=== PATIENT | female | born 1965 | race Caucasian/White ===

== ENCOUNTER 2016-07-05 16:12 | Emergency (ER) | payer BC, OTHER ==
[~2016-07-05] VITALS: Ht 165.1 cm; Wt 68.4 kg
[~2016-07-05 16:12] MED LIST: CITA10TA7 PO; HYDR-4246 PO; LISI1TAB13 PO; TRAZODONE PO
[2016-07-05 16:13] VITALS: Ht 165.1 cm; Wt 68.4 kg
--- OUTSIDE RECORDS SUMMARY | 2016-07-05 16:16 | XMS REPORT ---
Author Author Dahlia Cole Organization [employer] Address Unknown Phone Unavailable Care Team Providers Care Lining Feller Blindstitch Name Role Phone Dahlia Cole CP Unavailable Allergies No Known Allergies Problems No Known Problems Medications Medication Code System Code Instructions Start Date End Date Status Dosage Acyclovir [facility] [address]-70 200 MG Orally BID Dec 29, 2015 1 capsule Results No Known Results Summary Purpose [employer] Submission
--- OUTSIDE RECORDS SUMMARY | 2016-07-05 16:17 | XMS REPORT | Referral Summary ---
Author Author [facility] Organization [facility] Address Unknown Phone Unavailable Care Team Providers Care Cvicu Nurse Name Role Phone Kaleb Theodore Primary Care Physician [phone] Encounter [facility] Date(s): 08/18/15 - 08/18/15 [facility] [address] [place], [place] [address] Discharge Diagnosis: Lumbar degenerative disc disease Discharge Diagnosis: Low back pain (finding) Discharge Diagnosis: Lumbar spondylosis Discharge Diagnosis: Trochanteric bursitis, left hip Discharge Disposition: 01-Home or Self Care Attending Physician: Erich Cassidy Admitting Physician: Erich Cassidy Vital Signs Most recent to 1 oldest [Reference Range]: Temperature Oral 36.5 degC [35.8-37.3 degC] (08/18/15 3:02 PM) Blood Pressure 128/74 mmHg [90-140/60-90 mmHg] (08/18/15 3:02 PM) Problem List Condition Effective Dates Status Health Status Informant Allergies(Confirmed) Active Allergic Active rhinitis/hay fever(Confirmed) Anxiety(Confirmed) Active Lumbar degenerative Active disc disease(Confirmed) Displacement of Active lumbar intervertebral disc(Confirmed) Dry eyes(Confirmed) Active Enthesopathy of hip Active region (disorder)(Confirmed ) Granuloma 2003 Active inguinale(Confirmed) Heart Active murmur(Confirmed) Hypertension(Confirm 2007 Active ed) Low back pain Active (finding)(Confirmed) Lumbar Active radiculopathy(Confir med) STD (sexually 2003 - 04/25/14 Resolved transmitted disease)(Confirmed) Trochanteric Active bursitis, left hip(Confirmed) Chicken < 04/25/14 Resolved pox(Confirmed) Allergies, Adverse Reactions, Alerts No Known Medication Allergies Medications acyclovir 800 mg oral tablet tabs1, Oral, 5x/Day, NEEDED, 0 Refill(s) Start Date: 08/11/15 Status: Ordered citalopram 10 mg oral tablet 10 mg 1 tabs, Oral, Daily, # 30 tabs, 0 Refill(s) Start Date: 08/11/15 Status: Ordered cyclobenzaprine 10 mg oral tablet 1 tabs, Oral, Bedtime (once a day), as needed for spasm, # 90 tabs, 0 Refill(s) , Pharmacy: [id number], 1 tabs Oral Bedtime (once a day),PRN:as needed for spasm Start Date: 03/11/14 Status: Ordered famotidine 10 mg oral tablet 10 mg 1 tabs, Oral, BID, # 180 tabs, 0 Refill(s) Start Date: 08/11/15 Status: Ordered ibuprofen 200 mg oral tablet 3-4 tabs, Oral, TID, occasionally QID, 0 Refill(s) Start Date: 02/12/14 Status: Ordered lisinopril-hydrochlorothiazide 20 mg-12.5 mg oral tablet See Instructions, 1 tabs Oral Daily, # 90 tabs, 2 Refill(s), eRx: [id number], 1 tabs Oral Daily Start Date: 10/02/14 Status: Ordered traZODone 50 mg oral tablet See Instructions, TAKE ONE TABLET BY MOUTH AT BEDTIME, # 30 tabs, 11 Refill(s), Pharmacy: [id number], TAKE ONE TABLET BY MOUTH AT BEDTIME Start Date: 11/27/14 Status: Ordered Results No data available for this section Immunizations Vaccine Date Refusal Reason tetanus/diphth/pertuss (Tdap) adult/adol 02/23/06 influenza virus vaccine, inactivated 01/28/14 influenza virus vaccine, live 02/09/13 influenza virus vaccine, live 02/02/12 Procedures Procedure Date Related Diagnosis Body Site Bilateral L5- S1 Transforaminal 01/23/15 Left Trochanteric Bursa Injection Under US 03/25/14 Left L4-5/L5-S1 Facet 02/21/14 Left L5-S1 translaminar 06/14/13 Lt L5-S1 transforaminal 03/16/12 Lt L5-S1 transforaminal 06/14/11 S/p left breast biopsy 07/04/09 Hysterectomy 2003 Arthroplasty1 1993 Status post debridement of bone spur, left ankle 1Left ankle and foot for bone spurs Social History Social History Type Response Smoking Status Never smoker Assessment and Plan Extracted from: Title: Office Visit Note Author: Erich Cassidy Date: 08/18/15 Assessment/Plan Low back pain (finding) Lumbar degenerative disc disease Lumbar spondylosis Trochanteric bursitis, left hip I discussed this patient's care with Dr. Awad. We did review previous lumbar spine MRI findings ofdisc osteophyte at L5-S1 with facet arthropathy some mild right and mild to moderate left foraminal narrowing. She is not really describing any radicular type symptoms at this time. Dr. Awad feels clinically her symptoms seem more mechanical in nature. She has had improvement following facet injections in the remote past. Dr. Ye feels she has a component of trochanteric bursitis. She has benefited from trochanteric bursitis injections in the past. She is taking anti-inflammatories and is continued home exercises and stretches. Dr. Awad recommend scheduling her for a left L4 5 L5-S1 facet joint injection followed by left trochanteric bursitis injection under ultrasound. She understands the rationale for the procedures possible complications and she wishes to proceed. She requests a local. She will follow-up here in a few months following her injections assuming she improves. Follow-up sooner if needed. She voiced understanding and agrees to theabove plans. Thephysical exam findings history present illness recommendations are performed with an agreement with Dr. Blair findings.
--- OUTSIDE RECORDS SUMMARY | 2016-07-05 16:17 | XMS REPORT | Referral Summary ---
Author Organization Unknown Address Unknown Phone Unavailable Care Team Providers Care Purler Name Role Phone Vipul eWst Primary Care Physician [phone] Encounter [facility] [id number] Date(s): 05/28/14 - 05/28/14 [facility] [address] [place], [place] [address] Discharge Diagnosis: Low back pain (finding) Discharge Diagnosis: Lumbar spondylosis Discharge Diagnosis: Enthesopathy of hip region (disorder) Discharge Diagnosis: Lumbar degenerative disc disease Discharge Disposition: Home or Self Care Attending Physician: Rocio Tadeo Admitting Physician: Rocio Tadeo Vital Signs Most recent to 1 oldest [Reference Range]: Temperature Oral 36.7 degC [35.8-37.3 degC] (05/28/14 7:56 AM) Blood Pressure 122/74 mmHg [90-140/60-90 mmHg] (05/28/14 7:56 AM) Problem List Condition Effective Dates Status Health Status Informant Allergies(Confirmed) Active Allergic Active rhinitis/hay fever(Confirmed) Anxiety(Confirmed) Active Atrial Active fibrillation(Confirm ed) Lumbar degenerative Active disc disease(Confirmed) Displacement of Active lumbar intervertebral disc(Confirmed) Dry eyes(Confirmed) Active Enthesopathy of hip Active region (disorder)(Confirmed ) Granuloma 2004 Active inguinale(Confirmed) Heart Active murmur(Confirmed) Hypertension(Confirm 2008 Active ed) Irregular heart Active rhythm(Confirmed) Low back pain Active (finding)(Confirmed) Lumbar Active radiculopathy(Confir med) Lumbar Active spondylosis(Confirme d) PVD (peripheral Active vascular disease)(Confirmed) STD (sexually 2004 Active transmitted disease)(Confirmed) Lumbar spinal Active stenosis(Confirmed) Thoracic or Active lumbosacral neuritis or radiculitis, unspecified(Confirme d) Chicken Active pox(Confirmed) Allergies, Adverse Reactions, Alerts No Known Medication Allergies Medications acyclovir 200 mg oral capsule See Instructions, TAKE ONE TO TWO CAPSULES BY MOUTH 4 TIMES DAILY NEEDED, # 180 caps, 2 Refill(s), eRx: [id number], TAKE ONE TO TWO CAPSULES BY MOUTH 4 TIMES DAILY NEEDED Special Instructions: TAKE ONE TO TWO CAPSULES BY MOUTH 4 TIMES DAILY NEEDED Start Date: 03/11/14 Status: Ordered cyclobenzaprine 10 mg oral tablet 1 tabs, Oral, Bedtime (once a day), as needed for spasm, # 90 tabs, 0 Refill(s) , Pharmacy: [id number], 1 tabs Oral Bedtime (once a day),PRN:as needed for spasm Start Date: 03/11/14 Status: Ordered ibuprofen 200 mg oral tablet tabs, Oral, q4hr, 0 Refill(s) Start Date: 02/12/14 Status: Ordered lisinopril-hydrochlorothiazide 20 mg-25 mg oral tablet 1 tabs, Oral, Daily, # 30 tabs, 0 Refill(s) Start Date: 02/19/14 Status: Ordered traZODone 50 mg oral tablet See Instructions, TAKE ONE TABLET BY MOUTH AT BEDTIME, # 15 tabs, 0 Refill(s), Pharmacy: [id number], over due for appointment, TAKE ONE TABLET BY MOUTH AT BEDTIME Special Instructions: TAKE ONE TABLET BY MOUTH AT BEDTIME Start Date: 05/13/14 Status: Ordered Results No data available for this section Immunizations Vaccine Date Refusal Reason tetanus/diphth/pertuss (Tdap) adult/adol 02/23/06 influenza virus vaccine, inactivated 01/28/14 influenza virus vaccine, live 02/09/13 influenza virus vaccine, live 02/02/12 Procedures Procedure Date Related Diagnosis Body Site Left Trochanteric Bursa Injection Under US 03/25/14 Left L4-5/L5-S1 Facet 02/21/14 Left L5-S1 translaminar 06/14/13 Lt L5-S1 transforaminal 03/16/12 Lt L5-S1 transforaminal 06/14/11 S/p left breast biopsy 07/04/09 Hysterectomy 2003 Status post debridement of bone spur, left ankle Social History Social History Type Response Smoking Status Never smoker Assessment and Plan Extracted from: Title: Office Visit Note Author: Erich Cassidy Date: 05/28/14 Assessment/Plan Enthesopathy of hip region (disorder) Ordered: Internal Referral to Physical Therapy Office Visit Level 3 Est 56711 Low back pain (finding) Ordered: Internal Referral to Physical Therapy Office Visit Level 3 Est 71209 Lumbar degenerative disc disease Ordered: Internal Referral to Physical Therapy Office Visit Level 3 Est 14516 Lumbar spondylosis Ordered: Internal Referral to Physical Therapy Office Visit Level 3 Est 39797 Orders: XR Hip 1 View Left XR Pelvis 1 or 2 Views I discussed this patient's care with Dr. Awad. We did discuss that she's had significant improvement of her lower back pain following her facet joint injection. At this point the there is no indication for any further injection treatments for her lower back. I did review her lumbar spine MRI results with her again today. There is no surgical indication. She has no myelopathic signs. We did discuss she is having some recurring left trochanteric bursitis. I did discuss with herthis condition further. We discussed that Dr. Awad would not want to repeat her bursitis injection until 3 months at least from her last one. We also discussed that generally she should continue with a lot of stretching exercises. She says the physical therapy she had was several years back and sohave written her new order for physical therapy for her lower back and left trochanteric bursitis. We did also discuss occasion she' ll have some anterior groin pains. She had a previous x-ray from 2009 that was unremarkable for left hip will go and get a new x-ray of her pelvis and left hip today since the last was 4-5 years ago. She would like to go and scheduled for repeat bursitis injections we'll schedule her for left trochanteric bursitis injection under ultrasound after June 23. She does understand the rationale for this procedure possible convocation wished to proceed. If her symptoms subsided she can cancel this if not needed. She would follow-up here couple of months following this, sooner if needed. She voiced understanding and agree see above plan. The above was in discussion with Dr. Awad. I discussed the patient with the preceptor. . Referrals to Other Providers left trochanteric bursitis, lumbar DDD, lumbar spondylosis Referred by: Erich Cassidy
--- OUTSIDE RECORDS SUMMARY | 2016-07-05 16:17 | XMS REPORT | Referral Summary ---
Author Author [facility] Organization [facility] Address Unknown Phone Unavailable Care Team Providers Care Bonding Machine Operator Name Role Phone Gray Be Primary Care Physician [phone] Encounter [facility] Date(s): 11/28/14 - 11/28/14 [facility] [address] [place], [place] [address] Discharge Diagnosis: Lumbar radiculopathy Discharge Diagnosis: Displacement of lumbar intervertebral disc Discharge Diagnosis: Lumbar spondylosis Discharge Diagnosis: Enthesopathy of hip region (disorder) Discharge Diagnosis: Lumbar degenerative disc disease Discharge Disposition: 01-Home or Self Care Attending Physician: Caren Segundo PA-C Admitting Physician: Caren Segundo PA-C Referring Physician: Marzena West MD Vital Signs Most recent to 1 oldest [Reference Range]: Blood Pressure 102/66 mmHg [90-140/60-90 mmHg] (11/28/14 9:54 AM) Problem List Condition Effective Dates Status [...] (finding)(Confirmed) Lumbar Active radiculopathy(Confir med) Lumbar Active radiculopathy(Confir med) Lumbar Active spondylosis(Confirme d) PVD (peripheral Active vascular disease)(Confirmed) STD (sexually 2004 Active transmitted disease)(Confirmed) Lumbar spinal Active stenosis(Confirmed) Thoracic or Active lumbosacral neuritis or radiculitis, unspecified(Confirme d) Chicken Active pox(Confirmed) Allergies, Adverse Reactions, Alerts No Known Medication Allergies Medications cyclobenzaprine 10 mg oral tablet 1 tabs, Oral, Bedtime (once a day), as needed for spasm, # 90 tabs, 0 Refill(s) , Pharmacy: [id number], 1 tabs Oral Bedtime (once a day),PRN:as needed for spasm Start Date: 03/11/14 Status: Ordered ibuprofen 200 mg oral tablet tabs, Oral, q4hr, 0 Refill(s) Start Date: 02/12/14 Status: Ordered lisinopril-hydrochlorothiazide 20 mg-12.5 mg oral tablet See Instructions, 1 tabs Oral Daily, # 90 tabs, 2 Refill(s), eRx: [id number], 1 tabs Oral Daily Start Date: 10/02/14 Status: Ordered traZODone 50 mg oral tablet See Instructions, TAKE ONE TABLET BY MOUTH AT BEDTIME, # 30 tabs, 11 Refill(s), Pharmacy: [id number], TAKE ONE TABLET BY [...] Office Visit Note Author: Erich Cassidy Date: 11/28/14 Assessment/Plan Displacement of lumbar intervertebral disc Enthesopathy of hip region (disorder) Lumbar degenerative disc disease Lumbar radiculopathy Lumbar spondylosis I discussed the patient's plan of care with Dr. Awad. I also reviewed the patient's most recent lumbar MRI with the patient using a spinal model and also discuss this with Dr. Awad. According to this MRI the patient has minimal disc bulge at L3 4 with mild facet arthropathy at L3 4 and L4 5. At L5-S1 there was moderate to severe degeneration of the disc with disc bulging osteophytes and some minimal impression on the thecal sac with mild right and mild to moderate left foraminal narrowing. This coincides with discogenic pain radiculopathy. She also seems to have component of recurring left trochanteric bursitis which we discussed is fairly common in patients with back problems. She may have a lesser component of mechanical back pain. She did report having good relief with previous injection treatments lasting her for proximally 6 months at least. She felt the epidural and bursitis injections helped her the most. Dr. Awad recommends proceeding withan L5-S1 translaminar epidural towards the left and left trochanteric bursitis injection under ultrasound. The patient does understand the rationale for the procedure as well as possible complications including bleeding, infection, allergic reaction, nerve irritation or damage, and risk of spinal headache. The patient also understands other remote possible complications including paraplegia, quadriplegia, , stroke, and seizure. The patient voiced understanding and wishes to proceed. The patient requests a local anesthetic this time as she does not have a local bulk driver. The patient will follow-up in 2 months following the injection. If the patient fails to improve or worsening symptoms, they will follow-up sooner. She may have some residual mechanical pain that may need treated in the future. She was encouraged to continue her home exercise and stretching program. Discussed surgery is generally last resort. I did show her films and also provided her copy of the MRI report. The patient voiced understanding and agrees to the above plan.
--- OUTSIDE RECORDS SUMMARY | 2016-07-05 16:17 | XMS REPORT | Referral Summary ---
Author Author [facility] Organization [facility] Address Unknown Phone Unavailable Care Team Providers Care Nailhead Operator Name Role Phone Kaleb Theodore Primary Care Physician [phone] Encounter [facility] Date(s): 08/20/15 - 08/20/15 [facility] [address] [place], [place] [address] Discharge Diagnosis: Lumbar spondylosis Discharge Disposition: 01-Home or Self Care Attending Physician: Scot Awad MD Admitting Physician: Scot Awad MD Vital Signs Most recent to 1 oldest [Reference Range]: Peripheral Pulse 74 bpm Rate [60-100 bpm] (08/20/15 9:48 AM) Respiratory Rate 13 br/min [14-20 br/min] *LOW* (08/20/15 9:48 AM) Blood Pressure 118/81 mmHg [90-140/60-90 mmHg] (08/20/15 9:48 AM) SpO2 96 % (08/20/15 9:48 AM) Problem List Condition Effective Dates Status Health Status Informant Allergies(Confirmed) Active Allergic Active rhinitis/hay fever(Confirmed) Anxiety(Confirmed) Active Lumbar degenerative Active disc disease(Confirmed) Displacement of Active lumbar intervertebral disc(Confirmed) Dry eyes(Confirmed) Active Enthesopathy of hip Active region (disorder)(Confirmed ) Granuloma 2003 Active inguinale(Confirmed) Heart Active murmur(Confirmed) Hypertension(Confirm 2007 Active ed) Low back pain Active (finding)(Confirmed) Lumbar Active radiculopathy(Confir med) Lumbar Active spondylosis(Confirme d) STD (sexually 2003 - 04/25/14 Resolved transmitted [...] # 90 tabs, 0 Refill(s) , Pharmacy: [id number], 1 tabs Oral Bedtime [...] Daily, # 90 tabs, 2 Refill(s), eRx: [id number], 1 tabs Oral Daily Start Date: 10/02/14 Status: Ordered traZODone 50 mg oral tablet See Instructions, TAKE ONE TABLET BY MOUTH AT BEDTIME, # 30 tabs, 11 Refill(s), Pharmacy: [id number], TAKE ONE TABLET BY MOUTH AT BEDTIME Start Date: 11/27/14 Status: Ordered Results No data available for this section Immunizations Vaccine Date Refusal Reason tetanus/diphth/pertuss (Tdap) adult/adol 02/23/06 influenza virus vaccine, inactivated 01/28/14 influenza virus vaccine, live 02/09/13 influenza virus vaccine, live 02/02/12 Procedures Procedure Date Related Diagnosis Body Site Injection(s), diagnostic or therapeutic 08/20/15 agent, paravertebral facet (zygapophyseal) joint (or nerves innervating that joint) with image guidance (fluoroscopy or CT), lumbar or sacral; second level (List separately in addition to code for primary procedure) Injection(s), diagnostic or therapeutic 08/20/15 agent, paravertebral facet (zygapophyseal) joint (or nerves innervating that joint) with image guidance (fluoroscopy or CT), lumbar or sacral; single level.. Left L4-5/L5-S1 Facet 08/20/15 Bilateral L5- S1 Transforaminal 01/23/15 Left Trochanteric Bursa Injection Under US 03/25/14 Left L4-5/L5-S1 Facet 02/21/14 Left L5-S1 translaminar 06/14/13 Lt L5-S1 transforaminal 03/16/12 Lt L5-S1 transforaminal 06/14/11 S/p left breast biopsy 07/04/09 Hysterectomy 2002 Arthroplasty1 1992 Status post debridement of bone spur, left ankle 1Left ankle and foot for bone spurs Social History Social History Type Response Smoking Status Never smoker Assessment and Plan No data available for this section
--- OUTSIDE RECORDS SUMMARY | 2016-07-05 16:17 | XMS REPORT ---
Author Author [facility], [facility] - Organization Unknown Address Unknown Phone Unavailable Allergies, Adverse Reactions, Alerts * No Latex Allergy. * No IV Contrast Allergy. Problems No relevant problems exist. Procedures No relevant procedures performed. Medication Medication reconciliation has not been performed. Results LAB--CHEMISTRY from 01/24/2013 7:09 PMAnion Gap 9 (3-20 ) Albumin 4.0 g/dL (3.5-4.8 g/dL) Alkaline Phosphatase 66 U/L (26-104 U/L) ALT (SGPT) 16 U/L (14-54 U/L) AST (SGOT) 18 U/L (15-41 U/L) Bilirubin Total 0.4 mg/dL (0.2-1.2 mg/dL) BUN 14 mg/dL (4-20 mg/dL) Calcium 9.0 mg/dL (8.6-10.0 mg/dL) Chloride 100 mEq/L (99-109 mEq/L) CO2 28 mEq/L (22-32 mEq/L) Creatinine 0.68 mg/dL (0.44-1.03 mg/dL) eGFR >60 (>60- ) Globulin 3.3 g/dL (1.9-4.3 g/dL) Glucose 102 mg/dL H (70-100 mg/dL) Potassium 3.4 mEq/L L (3.6-5.1 mEq/L) Sodium 137 mEq/L (136-144 mEq/L) Protein 7.3 g/dL (6.1-7.9 g/dL) Troponin <0.05 ng/mL (-<0.06 ng/mL) LAB--HEMATOLOGY from 01/24/2013 7:09 PMAbsolute Basophils 0.04 THOUS (0.00-0.20 THOUS) Absolute Eosinophils 0.07 THOUS (0.00-0.50 THOUS) Absolute Lymphocytes 3.01 THOUS (0.80-3.30 THOUS) Absolute Monocytes 0.82 THOUS (0.30-1.00 THOUS) Absolute Neutrophils 5.76 THOUS (1.90-7.00 THOUS) HCT 39.5 % (37.0-47.0 %) HGB 13.4 g/dl (12.0-16.0 g/dl) MCH 33.5 pg H (27.0-32.0 pg) MCHC 33.9 g/dL (32.0-36.0 g/dL) MCV 98.8 fL (82.0-99.0 fL) MPV 11.2 fL (9.4-12.4 fL) Platelet Count 268 K/uL (150-400 K/uL) RBC 4.00 M/uL (4.00-5.20 M/uL) RDW 12.8 % (11.5-14.5 %) WBC 9.7 K/uL (4.8-10.8 K/uL) Basophils 0 % (0-2 %) Eosinophils 1 % (0-4 %) Immature Granulocytes 0.2 % (0.0-1.0 %) Lymphocytes 31 % (20-46 %) Monocytes 8 % (4-11 %) Neutrophils 59 % (51-75 %)
--- OUTSIDE RECORDS SUMMARY | 2016-07-05 16:17 | XMS REPORT | Referral Summary ---
Author Author [facility] Organization [facility] Address Unknown Phone Unavailable Care Team Providers Care Production Tech Name Role Phone Kaleb Theodore Primary Care Physician [phone] Encounter VC Date(s): 10/30/15 - 10/30/15 [facility] [address] [place], [place] [address] Discharge Diagnosis: Lumbar spondylosis Discharge Diagnosis: Trochanteric bursitis, left hip Discharge Diagnosis: Displacement of lumbar intervertebral disc Discharge Diagnosis: Low back pain (finding) Discharge Diagnosis: Lumbar degenerative disc disease Discharge Disposition: 01-Home or Self Care Attending Physician: Erich Cassidy Admitting Physician: Erich Cassidy Referring Physician: Erich Cassidy Vital Signs Most recent to 1 oldest [Reference Range]: Temperature Oral 36.7 degC [35.8-37.3 degC] (10/30/15 3:37 PM) Blood Pressure 126/80 mmHg [90-140/60-90 mmHg] (10/30/15 3:37 PM) Problem List Condition Effective Dates Status Health Status Informant Allergies(Confirmed) Active Allergic Active rhinitis/hay fever(Confirmed) Anxiety(Confirmed) Active Lumbar degenerative Active disc disease(Confirmed) Displacement of Active lumbar intervertebral disc(Confirmed) Enthesopathy of hip Active region (disorder)(Confirmed ) Granuloma 2003 Active inguinale(Confirmed) Heart Active murmur(Confirmed) Hypertension(Confirm 2008 Active ed) Low back pain Active (finding)(Confirmed) Lumbar Active radiculopathy(Confir med) Lumbar Active spondylosis(Confirme d) STD (sexually 2003 - 04/25/14 Resolved transmitted disease)(Confirmed) Dry eyes(Confirmed) Active Trochanteric Active bursitis, left hip(Confirmed) Chicken < [...] # 90 tabs, 0 Refill(s) , Pharmacy: [id number], 1 tabs Oral Bedtime (once a day),PRN:as needed for spasm Start Date: 03/11/14 Status: Ordered Excedrin Migraine oral tablet 2 tabs, Oral, TID, as needed for headache, # 50 tabs, 0 Refill(s), other reason (Rx) Start Date: 09/16/15 Status: Ordered famotidine 10 mg oral tablet 10 mg 1 tabs, Oral, BID, # 180 tabs, 0 Refill(s) Start Date: 08/11/15 Status: Ordered hydroxychloroquine 200 mg oral tablet 200 mg 1 tabs, Oral, BID, # 60 tabs, 2 Refill(s), Pharmacy: [id number], 1 tabs Oral BID Start Date: 09/16/15 Status: Ordered ibuprofen 200 mg oral tablet 3-4 tabs, Oral, TID, occasionally QID, 0 Refill(s) Start Date: 02/12/14 Status: Ordered lisinopril-hydrochlorothiazide 20 mg-12.5 mg oral tablet See Instructions, 1 tabs Oral Daily, # 90 tabs, 2 Refill(s), eRx: [id number], 1 tabs Oral Daily Start Date: 10/02/14 Status: Ordered LORazepam 1 mg oral tablet See Instructions, Take one tab 45 minutes before MRI and may repeat 15 minutes before MRI if needed, # 2 tabs, 0 Refill(s) Start Date: 09/16/15 Status: Ordered predniSONE 5 mg oral tablet See Instructions, 4 tabs Oral Daily for 3d, 3 qd x 3d, 2 qd x 3d, 1 qd x 3d with food, # 30 tabs, 0 Refill(s), Pharmacy: [id number], 4 tabs Oral Daily for 3d, 3 qd x 3d, 2 qd x 3d, 1 qd x 3d; with food Start Date: 10/13/15 Status: Ordered traZODone 50 mg oral tablet See Instructions, TAKE ONE TABLET BY MOUTH AT BEDTIME, # 30 tabs, 11 Refill(s), Pharmacy: [id number], TAKE ONE TABLET BY MOUTH AT BEDTIME Start Date: 11/27/14 Status: Ordered Results No data available for this section Immunizations Vaccine Date Refusal Reason tetanus/diphth/pertuss (Tdap) adult/adol 02/23/06 influenza virus vaccine, inactivated 01/28/14 influenza virus vaccine, live 02/09/13 influenza virus vaccine, live 02/02/12 Procedures Procedure Date Related Diagnosis Body Site Left L4-5/L5-S1 Facet 08/20/15 Bilateral L5- S1 Transforaminal 01/23/15 Left Trochanteric Bursa Injection Under US 03/25/14 Left L4-5/L5-S1 Facet 02/21/14 Left L5-S1 translaminar 06/14/13 Lt L5-S1 transforaminal 03/16/12 Lt L5-S1 transforaminal 06/14/11 S/p left breast biopsy 07/04/09 Hysterectomy 2003 Arthroplasty1 1992 Status post debridement of bone spur, left ankle 1Left ankle and foot for bone spurs Social History Social History Type Response Smoking Status Never smoker Assessment and Plan Extracted from: Title: Office Visit Note Author: Erich Cassidy Date: 10/30/15 Assessment/Plan Displacement of lumbar intervertebral disc Low back pain (finding) Lumbar degenerative disc disease Lumbar spondylosis Trochanteric bursitis, left hip I did discuss with the patient previous lumbar spine MRIwith disc osteophytes L5-S1 facet arthropathy some mild right and mild to moderate left foraminal narrowing. She's doing very well at this time. She has had improvement following her injection treatments. She is notrequiring any additional interventional treatments at this time. She'll continue home exercise and stretching. She will follow-up here on an as-needed basis if her symptoms worsen. She voiced understanding and agrees to the above plans. The above was in discussion with Dr. Awad.
--- OUTSIDE RECORDS SUMMARY | 2016-07-05 16:17 | XMS REPORT | Referral Summary ---
Author Author [facility] Organization [facility] Address Unknown Phone Unavailable Care Team Providers Care Entry Level Assistant Manager Name Role Phone No PCP, [facility] Primary Care Physician [phone] Encounter VC Date(s): 03/27/15 - 03/27/15 [facility] [address] [place], [place] [address] Discharge Diagnosis: Lumbar degenerative disc disease Discharge Diagnosis: Low back pain (finding) Discharge Diagnosis: Displacement of lumbar intervertebral disc Discharge Diagnosis: Lumbar spinal stenosis Discharge Diagnosis: Trochanteric bursitis, left hip Discharge Diagnosis: Lumbar spondylosis Discharge Disposition: 01-Home or Self Care Attending Physician: Erich Cassidy Admitting Physician: Erich Cassidy Vital Signs Most recent to 1 oldest [Reference Range]: Blood Pressure 104/66 mmHg [90-140/60-90 mmHg] (03/27/15 7:57 AM) Problem List Condition Effective Dates Status [...] 4 TIMES DAILY NEEDED, # 180 caps, 11 Refill(s), Pharmacy: [id number], TAKE ONE TO TWO CAPSULES BY MOUTH 4 TIMES DAILY NEEDED Start Date: 05/29/14 Stop Date: 05/29/15 Status: Ordered cyclobenzaprine 10 mg oral tablet 1 tabs, Oral, Bedtime (once a day), as needed for spasm, # 90 tabs, 0 Refill(s) , Pharmacy: [id number], 1 tabs Oral Bedtime (once a day),PRN:as needed for spasm Start Date: 03/11/14 Status: Ordered ibuprofen 200 mg oral tablet tabs, Oral, q4hr, 0 Refill(s) Start Date: 02/12/14 Status: Ordered lisinopril-hydrochlorothiazide 20 mg-12.5 mg oral tablet See Instructions, 1 tabs Oral Daily, # 90 tabs, 2 Refill(s), eRx: [id number], 1 tabs Oral Daily Start Date: 10/02/14 Status: Ordered traZODone 50 mg oral tablet See Instructions, TAKE ONE TABLET BY MOUTH AT BEDTIME, # 30 tabs, 11 Refill(s), Pharmacy: [id number], TAKE ONE TABLET BY [...] S/p left breast biopsy 07/04/09 Hysterectomy 2002 Status post debridement of bone spur, left ankle Social History Social History Type Response Smoking Status Never smoker Assessment and Plan Extracted from: Title: Office Visit Note Author: Erich Cassidy Date: 03/27/15 Assessment/Plan Displacement of lumbar intervertebral disc Low back pain (finding) Lumbar degenerative disc disease Lumbar spinal stenosis Lumbar spondylosis Trochanteric bursitis, left hip I discussed this patient's care with Dr. Awad. I did review both her previous lumbar spine MRI as well as her previous hip x-rays. She has findings of that disc osteophyte at L5-S1 into the foraminal regions bilaterally with themild right and mild to moderate left foraminal narrowing. She has had improvement of her radiculopathy. She has some residual mechanical back at her left L5-S1 facet joint but does not seem to be severe enough to proceed with any further treatment for this at this time. She does have some recurring left-sided trochanteric bursitis seems symptomatic. Although the last bursitis injection didn't seem to help her as much she seemed to have more radiculopathy at that time and previous trochanteric bursitis injections have provided her at least 50 percent improvement for several months in the past and she would like to consider repeating this. Dr. Awad recommend scheduling to repeat her left trochanteric bursitis injection under ultrasound. She understands rationale for the procedure possible complication wished to proceed. She was encouraged her efforts a home exercise and stretching. She would just follow-up here in 3 months sooner if needed. She has no myelopathic signs no surgical indication at this time. She voiced understanding and agrees to the above plans. The above was in discussion with Dr. Awad.
--- OUTSIDE RECORDS SUMMARY | 2016-07-05 16:17 | XMS REPORT | Referral Summary ---
Author Organization Unknown Address Unknown Phone Unavailable Care Team Providers Care Rn Patient Care Name Role Phone Vipul West Primary Care Physician [phone] Encounter VC Date(s): 07/05/14 - 07/05/14 [facility] [address] [place] [address] [place] [address] Discharge Diagnosis: Neck mass Discharge Disposition: Home or Self Care Attending Physician: Marzena West MD Admitting Physician: Marzena West MD Vital Signs Most recent to 1 oldest [Reference Range]: Temperature Tympanic 36.8 degC [36.6-38.1 degC] (07/05/14 8:10 AM) Peripheral Pulse 80 bpm Rate [60-100 bpm] (07/05/14 8:10 AM) Blood Pressure 110/60 mmHg [90-140/60-90 mmHg] (07/05/14 8:10 AM) Problem List Condition Effective Dates Status [...] NEEDED, # 180 caps, 11 Refill(s), Pharmacy: [facility], TAKE ONE TO TWO CAPSULES BY MOUTH 4 TIMES DAILY NEEDED Special Instructions: TAKE ONE TO TWO CAPSULES BY MOUTH 4 TIMES DAILY NEEDED Start Date: 05/29/14 Stop Date: 05/29/15 Status: Ordered cyclobenzaprine 10 mg oral tablet 1 tabs, Oral, Bedtime (once a day), as needed for spasm, # 90 tabs, 0 Refill(s) , Pharmacy: [facility], 1 tabs Oral Bedtime [...] BEDTIME, # 30 tabs, 11 Refill(s), Pharmacy: [facility], TAKE ONE TABLET BY MOUTH AT BEDTIME Special Instructions: TAKE ONE TABLET BY MOUTH AT BEDTIME Start Date: 05/29/14 Status: Ordered Results No data available for [...] smoker Assessment and Plan Extracted from: Title: Ambulatory Patient Education Author: Marzena West MD Date: 07/05/14 Family Medicine Health Maintenance, Female A healthy lifestyle and preventative care can promote health and wellness. Maintain regular health, dental, and eye exams. Eat a healthy diet. Foods like vegetables, fruits, whole grains, low-fat dairy products, and lean protein foods contain the nutrients you need without too many calories. Decrease your intake of foods high in solid fats, added sugars, and salt. Get information about a proper diet from your caregiver, if necessary. Regular physical exercise is one of the most important things you can do for your health. Most adults should get at least 150 minutes of moderate- intensity exercise (any activity that increases your heart rate and causes you to sweat) each week. In addition, most adults need muscle-strengthening exercises on 2 or more days a week. Maintain a healthy weight. The body mass index (BMI) is a screening tool to identify possible weight problems. It provides an estimate of body fat based on height and weight. Your caregiver can help determine your BMI, and can help you achieve or maintain a healthy weight. For adults 20 years and older: A BMI below 18.5 is considered underweight. A BMI of 18.5 to 24.9 is normal. A BMI of 25 to 29.9 is considered overweight. A BMI of 30 and above is considered obese. Maintain normal blood lipids and cholesterol by exercising and minimizing your intake of saturated fat. Eat a balanced diet with plenty of fruits and vegetables. Blood tests for lipids and cholesterol should begin at age 20 and be repeated every 5 years. If your lipid or cholesterol levels are high, you are over 50, or you are a high risk for heart disease, you may need your cholesterol levels checked more frequently.Ongoing high lipid and cholesterol levels should be treated with medicines if diet and exercise are not effective. If you smoke, find out from your caregiver how to quit. If you do not use tobacco, do not start. Lung cancer screening is recommended for adults aged 5580 years who are at high risk for developing lung cancer because of a history of smoking. Yearly low-dose computed tomography (CT) is recommended for people who have at least a 39-jlag-cywy history of smoking and are a current smoker or have quit within the past 15 years. A pack year of smoking is smoking an average of 1 pack of cigarettes a day for 1 year (for example: 1 pack a day for 30 years or 2 packs a day for 15 years). Yearly screening should continue until the smoker has stopped smoking for at least 15 years. Yearly screening should also be stopped for people who develop a health problem that would prevent them from having lung cancer treatment. If you are , do not drink alcohol. If you are , be very cautious about drinking alcohol. If you are not and choose to drink alcohol, do not exceed 1 drink per day. One drink is considered to be 12 ounces (355 mL) of beer, 5 ounces (148 mL) of wine, or 1.5 ounces (44 mL) of liquor. Avoid use of street drugs. Do not share needles with anyone. Ask for help if you need support or instructions about stopping the use of drugs. High blood pressure causes heart disease and increases the risk of stroke. Blood pressure should be checked at least every 1 to 2 years. Ongoing high blood pressure should be treated with medicines, if weight loss and exercise are not effective. If you are 55 to 79 years old, ask your caregiver if you should take aspirin to prevent strokes. Diabetes screening involves taking a blood sample to check your fasting blood sugar level. This should be done once every 3 years, after age 45, if you are within normal weight and without risk factors for diabetes. Testing should be considered at a younger age or be carried out more frequently if you are overweight and have at least 1 risk factor for diabetes. Breast cancer screening is essential preventative care for women. You should practice "breast self-awareness." This means understanding the normal appearance and feel of your breasts and may include breast self-examination. Any changes detected, no matter how small, should be reported to a caregiver. Women in their 20s and 30s should have a clinical breast exam (CBE) by a caregiver as part of a regular health exam every 1 to 3 years. After age 40, women should have a CBE every year. Starting at age 40, women should consider having a mammogram (breast X-ray ) every year. Women who have a family history of breast cancer should talk to their caregiver about genetic screening. Women at a high risk of breast cancer should talk to their caregiver about having an MRI and a mammogram every year. Breast cancer gene (BRCA )-related cancer risk assessment is recommended for women who have family members with BRCA -related cancers. BRCA -related cancers include breast, ovarian, tubal, and peritoneal cancers. Having family members with these cancers may be associated with an increased risk for harmful changes (mutations ) in the breast cancer genes BRCA1 and BRCA2 . Results of the assessment will determine the need for genetic counseling and BRCA1 and BRCA2 testing. The Pap test is a screening test for cervical cancer. Women should have a Pap test starting at age 21. Between ages 21 and 29, Pap tests should be repeated every 2 years. Beginning at age 30, you should have a Pap test every 3 years as long as the past 3 Pap tests have been normal. If you had a hysterectomy for a problem that was not cancer or a condition that could lead to cancer, then you no longer need Pap tests. If you are between ages 65 and 70 , and you have had normal Pap tests going back 10 years, you no longer need Pap tests. If you have had past treatment for cervical cancer or a condition that could lead to cancer, you need Pap tests and screening for cancer for at least 20 years after your treatment. If Pap tests have been discontinued, risk factors (such as a new sexual partner) need to be reassessed to determine if screening should be resumed. Some women have medical problems that increase the chance of getting cervical cancer. In these cases, your caregiver may recommend more frequent screening and Pap tests. The human papillomavirus (HPV) test is an additional test that may be used for cervical cancer screening. The HPV test looks for the virus that can cause the cell changes on the cervix. The cells collected during the Pap test can be tested for HPV. The HPV test could be used to screen women aged 30 years and older, and should be used in women of any age who have unclear Pap test results. After the age of 30, women should have HPV testing at the same frequency as a Pap test. Colorectal cancer can be detected and often prevented. Most routine colorectal cancer screening begins at the age of 50 and continues through age 75. However, your caregiver may recommend screening at an earlier age if you have risk factors for colon cancer. On a yearly basis, your caregiver may provide home test kits to check for hidden blood in the stool. Use of a small camera at the end of a tube, to directly examine the colon (sigmoidoscopy or colonoscopy ), can detect the earliest forms of colorectal cancer. Talk to your caregiver about this at age 50, when routine screening begins. Direct examination of the colon should be repeated every 5 to 10 years through age 75, unless early forms of pre-cancerous polyps or small growths are found. Hepatitis C blood testing is recommended for all people born from 1945 through 1965 and any individual with known risks for hepatitis C. Practice safe sex. Use condoms and avoid high-risk sexual practices to reduce the spread of sexually transmitted infections (STIs). Sexually active women aged 25 and younger should be checked for Chlamydia, which is a common sexually transmitted infection. Older women with new or multiple partners should also be tested for Chlamydia. Testing for other STIs is recommended if you are sexually active and at increased risk. Osteoporosis is a disease in which the bones lose minerals and strength with aging. This can result in serious bone fractures. The risk of osteoporosis can be identified using a bone density scan. Women ages 65 and over and women at risk for fractures or osteoporosis should discuss screening with their caregivers. Ask your caregiver whether you should be taking a calcium supplement or vitamin D to reduce the rate of osteoporosis. Menopause can be associated with physical symptoms and risks. Hormone replacement therapy is available to decrease symptoms and risks. You should talk to your caregiver about whether hormone replacement therapy is right for you. Use sunscreen. Apply sunscreen liberally and repeatedly throughout the day. You should seek shade when your shadow is shorter than you. Protect yourself by wearing long sleeves, pants, a wide-brimmed hat, and sunglasses year round, whenever you are outdoors. Notify your caregiver of new moles or changes in moles, especially if there is a change in shape or color. Also notify your caregiver if a mole is larger than the size of a pencil eraser. Stay current with your immunizations. Document Released: 10/18/2011 Document Revised: 07/30/2013 Document Reviewed: ExitCare Patient Information 2013 [facility]. No follow up information was provided. Extracted from: Title: Office Visit Note Author: Marzena West MD Date: 07/05/14 Assessment/Plan Neck mass sono
--- OUTSIDE RECORDS SUMMARY | 2016-07-05 16:17 | XMS REPORT | Referral Summary ---
Author Author [facility] Organization [facility] Address Unknown Phone Unavailable Care Team Providers Care Motor Vehicle Escort Driver Name Role Phone Gray Be Primary Care Physician [phone] Encounter VC Date(s): 12/05/14 - 12/05/14 [facility] [address] [place], [place] [address] Discharge Diagnosis: Lumbar radiculopathy Discharge Diagnosis: Lumbar spinal stenosis Discharge Diagnosis: Displacement of lumbar intervertebral disc Discharge Diagnosis: Lumbar back pain Discharge Disposition: 01-Home or Self Care Attending Physician: Scot Awad MD Admitting Physician: Scot Awad MD Vital Signs Most recent to 1 oldest [Reference Range]: Apical Heart Rate 72 bpm [60-100 bpm] (12/05/14 1:10 PM) Respiratory Rate 16 br/min [14-20 br/min] (12/05/14 1:10 PM) Blood Pressure 101/67 mmHg [90-140/60-90 mmHg] (12/05/14 1:10 PM) SpO2 99 % (12/05/14 1:10 PM) Problem List Condition Effective Dates Status [...] # 90 tabs, 0 Refill(s) , Pharmacy: [id number], 1 tabs Oral Bedtime (once a day),PRN:as needed for spasm Start Date: 03/11/14 Status: Ordered ibuprofen 200 mg oral tablet tabs, Oral, q4hr, 0 Refill(s) Start Date: 02/12/14 Status: Ordered lisinopril-hydrochlorothiazide 20 mg-12.5 mg oral tablet See Instructions, 1 tabs Oral Daily, # 90 tabs, 2 Refill(s), eRx: [id number], 1 tabs Oral Daily Start Date: 10/02/14 Status: Ordered traZODone 50 mg oral tablet See Instructions, TAKE ONE TABLET BY MOUTH AT BEDTIME, # 30 tabs, 11 Refill(s), Pharmacy: [id number], TAKE ONE TABLET BY MOUTH AT BEDTIME Start Date: 11/27/14 Status: Ordered Results No data available for this section Immunizations Vaccine Date Refusal Reason tetanus/diphth/pertuss (Tdap) adult/adol 02/23/06 influenza virus vaccine, inactivated 01/28/14 influenza virus vaccine, live 02/09/13 influenza virus vaccine, live 02/02/12 Procedures Procedure Date Related Diagnosis Body Site Bilateral L5- S1 Transforaminal 01/23/15 Injection(s), of diagnostic or therapeutic 12/05/14 substance(s) (including anesthetic, antispasmodic, opioid, steroid, other solution), not including neurolytic substances, including needle or catheter placement, includes contrast for localization when performed, Left Trochanteric Bursa Injection Under US 03/25/14 Left L4-5/L5-S1 Facet 02/21/14 Left L5-S1 translaminar 06/14/13 Lt L5-S1 transforaminal 03/16/12 Lt L5-S1 transforaminal 06/14/11 S/p left breast biopsy 3/19/10 Hysterectomy 2002 Status post debridement of bone spur, left ankle Social History Social History Type Response Smoking Status Never smoker Assessment and Plan No data available for this section
--- OUTSIDE RECORDS SUMMARY | 2016-07-05 16:17 | XMS REPORT | Referral Summary ---
Author Author [facility], Immediate Care Organization [facility] Address Unknown Phone Unavailable Care Team Providers Care Supervisor Loading Name Role Phone Ewelina Kaleb Primary Care Physician [phone] Encounter [facility] Date(s): 09/10/15 - 09/10/15 [facility], [address] [place] [address] Discharge Diagnosis: Right ear pain Discharge Diagnosis: Left ear pain Discharge Diagnosis: Headache Discharge Disposition: -Home or Self Care Attending Physician: Olvin Saleh PA-C Admitting Physician: Olvin Saleh PA-C Vital Signs Most recent to 1 oldest [Reference Range]: Temperature Tympanic 37 degC [36.6-38.1 degC] (09/10/15 1:12 PM) Peripheral Pulse 67 bpm Rate [60-100 bpm] (09/10/15 1:12 PM) Blood Pressure 140/82 mmHg [90-140/60-90 mmHg] (09/10/15 1:12 PM) Mean Arterial 101 mmHg Pressure, Cuff (09/10/15 1:12 PM) SpO2 97 % (09/10/15 1:12 PM) Problem List Condition Effective Dates Status [...] # 90 tabs, 0 Refill(s) , Pharmacy: [id number], 1 tabs Oral Bedtime [...] Daily, # 90 tabs, 2 Refill(s), eRx: [id number], 1 tabs Oral Daily Start Date: 10/02/14 Status: Ordered traZODone 50 mg oral tablet See Instructions, TAKE ONE TABLET BY MOUTH AT BEDTIME, # 30 tabs, 11 Refill(s), Pharmacy: [id number], TAKE ONE TABLET BY [...] smoker Assessment and Plan Extracted from: Title: headache, blurry vision, Author: Olvin Saleh PA-C Date: bilateral ear pain Assessment/Plan Blurred vision New onset blurred vision. Contacted Dr. Cervantes's office and theywere able to work her in today at 345p. Headache Patient notes new onset of headache over the last 3 months,no chronic history of headaches,she states that it's behind the eyes,time elected not to treat with Toradol, otherwise no clear indication of atrial fibrillationmental status changes, facial drooping, if any of these develop patient was tofollow-up in the ER. Left ear pain No signs of infection at this time. Tylenol and ibuprofen as needed for pain. Right ear pain As above Addendum I recommended lab and close f/u. I would still recommend an ESR/ CRP to consider GA/PMR by and possible use of steroids contingent on the results. Gigi Nunez MD on September 10, 2015 15:10:31 CDT Addendum CRP results obtained from [facility] less than 5. ESR - pending; phone call by to [facility] lab- have results tomorrow. Patient called; I left a message. Olvin Saleh PA-C on September 10, 2015 17:33:07 CDT
--- OUTSIDE RECORDS SUMMARY | 2016-07-05 16:17 | XMS REPORT | Referral Summary ---
Author Author [facility] Organization [facility] Address Unknown Phone Unavailable Care Team Providers Care Chief Order Dispatcher Name Role Phone Gray Be Primary Care Physician [phone] Encounter [facility] Date(s): 11/01/14 - 11/01/14 [facility] [address] [place], [place] [address] Discharge Diagnosis: Lumbar spinal stenosis Discharge Diagnosis: Thoracic or lumbosacral neuritis or radiculitis, unspecified Discharge Diagnosis: Lumbar degenerative disc disease Discharge Diagnosis: Lumbar spondylosis Discharge Diagnosis: Enthesopathy of hip region (disorder) Discharge Diagnosis: Back pain, low back Discharge Disposition: -Home or Self Care Attending Physician: Caren Segundo PA-C Admitting Physician: Caren Segundo PA-C Referring Physician: Marzena West MD Vital Signs Most recent to 1 oldest [Reference Range]: Blood Pressure 114/74 mmHg [90-140/60-90 mmHg] (11/01/14 9:59 AM) Problem List Condition Effective Dates Status [...] NEEDED, # 180 caps, 11 Refill(s), Pharmacy: [id number], TAKE ONE TO TWO CAPSULES BY MOUTH 4 TIMES DAILY NEEDED Start Date: 05/29/14 Stop Date: 05/29/15 Status: Ordered cyclobenzaprine 10 mg oral tablet 1 tabs, Oral, Bedtime (once a day), as needed for spasm, # 90 tabs, 0 Refill(s) , Pharmacy: [id number], 1 tabs Oral Bedtime (once a day),PRN:as needed for spasm Start Date: 03/11/14 Status: Ordered ibuprofen 200 mg oral tablet tabs, Oral, q4hr, 0 Refill(s) Start Date: 02/12/14 Status: Ordered lisinopril-hydrochlorothiazide 20 mg-12.5 mg oral tablet See Instructions, 1 tabs Oral Daily, # 90 tabs, 2 Refill(s), eRx: [id number], 1 tabs Oral Daily Start Date: 10/02/14 Status: Ordered traZODone 50 mg oral tablet See Instructions, TAKE ONE TABLET BY MOUTH AT BEDTIME, # 30 tabs, 11 Refill(s), Pharmacy: [id number], TAKE ONE TABLET BY MOUTH [...] Extracted from: Title: Office Visit Note Author: Caren Segundo PA-C Date: 11/01/14 Assessment/Plan Back pain, low back Enthesopathy of hip region (disorder) Lumbar degenerative disc disease Lumbar spinal stenosis Lumbar spondylosis Thoracic or lumbosacral neuritis or radiculitis, unspecified Orders: MRI Spine Lumbar w/o Contrast I discussed this patient's plan of care with Dr. Awad. I also reviewed the patient's most recent lumbar MRI. According to this MRI the patient has degenerative disc disease with disc/ protrusion and mild bilateral foraminal encroachment at L5-S1. She has mild facet arthropathy at L3 4 and L4 5. There is no current surgical indication. She has previously benefited from facet joint injections, but due to new symptoms in her right lower extremity that she has not experienced before, Dr. Awad like to update her lumbar MRI. We will see the patient back for follow-up after she obtains these new investigations to discuss potentially setting her up for her left facet joint injections as well as possibly an epidural for her right lower extremity symptoms. The patient voiced understanding and agrees to the above plans. The above was in discussion with Dr. Awad.
--- OUTSIDE RECORDS SUMMARY | 2016-07-05 16:17 | XMS REPORT | Continuity of Care Document ---
Author Author Delmi VALDOVINOS, [facility] Amb[facility] Address [address] [place] [address] Phone Care Team Providers Care Rug Inspector Name Role Phone Marzena West DAVID Unavailable Payers Payer name Insurance type Covered republican ID Authorization(s) Unknown Problems Condition Effective Dates (start - stop) Clinical Status Lumbago - *Chronic Degeneration of lumbar or lumbosacral intervertebral disc - * Chronic Radiculitis, Thoracic or Lumbar - *Chronic Enthesopathy of hip region - *Chronic Myalgia - *Chronic HTN (hypertension) - *Chronic Lumbago - *Chronic Skin lesion - *Chronic Gynecological Examination - *Routine Hypertension, Unspecified - *Chronic Magnesium deficiency - *Chronic Fatigue / Malaise - *Acute Sinusitis, Acute - *Acute Cough - *Acute HEMATURIA NOS - *Chronic Radiculitis, Thoracic or Lumbar - *Chronic Radiculitis, Thoracic or Lumbar - Chronic Back pain - *Chronic Skin lesion - *Chronic Dizziness - *Acute Chest tightness - *Chronic Visual changes - *Acute Abnormal EKG - *Acute Hematuria - *Acute Abnormal ECG - Uncertain GRANULOMA INGUINALE - ANXIETY STATE NOS - BENIGN HYPERTENSION - CARDIAC MURMURS NEC - Spinal stenosis of lumbar region - *Symptomatic Radiculitis, Thoracic or Lumbar - *Symptomatic Abdominal pain, RLQ - *Acute Back pain - *Chronic Abdominal pain, right lower quadrant - *Acute Kidney stone - *Acute Dressing change/suture removal - *Acute Encounter for change or removal of nonsurgical wou - *Acute Enthesopathy of hip region - *Chronic Enthesopathy of hip region - Chronic HEMATURIA NOS - *Chronic Family History Family Member Diagnosis Age At Onset Status Family h/o (Unknown) Obesity Yes Family h/o (Unknown) Diabetes Yes Family h/o (Unknown) Hyperlipidemia Yes Family h/o (Unknown) Hypertension Yes Family h/o (Unknown) Heart disease Yes Family h/o (Unknown) Cancer Yes Social History Social History Element Description Quantity alcohol beer & wine 4 drinks Allergies, Adverse Reactions, Alerts Substance Reaction Severity Status Unknown Medications Medication Instructions Dosage Effective Dates (start - stop) Status potassium chloride ER 10 mEq capsule,extended release take 1 Capsule (10MEQ) by oral route 2 times every day with food 10 MEQ - Active Vitamin D3 1,000 unit capsule take 1 Capsule by Oral route every day 0 - Active magnesium 200 mg tablet take 2 tab po qd - Active acyclovir 200 mg capsule take 1-2 capsules po qid, prn - Active trazodone 50 mg tablet take 1 tablet (50MG) by oral route every bedtime 50 MG - Active tramadol 50 mg tablet take 1 tablet (50MG) by oral route every 6 hours as needed 50 MG - Active [place] 5 mg-325 mg tablet take 1 tablet by oral route every 6 hours as needed for pain 0 - Active lisinopril 20 mg-hydrochlorothiazide 12.5 mg tablet take 1 tablet by oral route every day 0 - Active Immunizations Vaccine Date Status Comments flu (split) (3 yrs or older) completed - Completed reason: public agency flu (split) (3 yrs or older) completed - Completed reason: public agency Tdap (Adacel ) completed - Completed reason: source unspecified Results Test Name Date and Time Measure Units Reference Range Abnormal Flag Comments Unknown Vital Signs Date / Time: Height Weight Pulse Rate Blood Pressure Temperature /10:44:00 65.00 in 145.00 lbs 116/74 mm[Hg] 99.4 F Procedures Procedure Date Unknown Encounters Encounter Location Date Patient Visit [facility] FC Pain Patient Visit [facility] Patient Visit [facility] New Patient Visit [facility] Patient Visit [facility] Patient Visit [facility] Patient Visit [facility] Patient Visit [facility] Patient [facility] Patient Visit [facility] Pain Patient Visit [facility] Patient Visit [facility] Patient [facility] New Patient Visit [facility] Card Patient Visit Conversion Patient Visit [facility] Pain Patient Visit [facility] Patient Visit [facility] Patient Visit [facility] Pain Patient Visit [facility] Urology Patient Visit [facility] Patient Visit [facility] Patient Visit [facility] Advance Directives Directive Effective Date Unknown
--- OUTSIDE RECORDS SUMMARY | 2016-07-05 16:17 | XMS REPORT | Continuity of Care Document ---
Author Author Delmi VALDOVINOS, [facility] Amb[facility] Address [address] [place] [address] Phone Care Team Providers Care International Sales Representative Name Role Phone Marzena West DAVID Unavailable Payers Payer name Insurance type Covered libertarian ID Authorization(s) Unknown Problems Condition Effective Dates (start - stop) Clinical Status Enthesopathy of hip region - *Chronic Enthesopathy of hip region - Chronic Myalgia - *Chronic HTN (hypertension) - *Chronic Lumbago - *Chronic Skin lesion - *Chronic Gynecological Examination - *Routine Hypertension, Unspecified - *Chronic Magnesium deficiency - *Chronic Fatigue / Malaise - *Acute Sinusitis, Acute - *Acute Cough - *Acute HEMATURIA NOS - *Chronic Radiculitis, Thoracic or Lumbar - *Chronic Radiculitis, Thoracic or Lumbar - Chronic Lumbago - *Chronic Degeneration of lumbar or lumbosacral intervertebral disc - * Chronic Radiculitis, Thoracic or Lumbar - *Chronic Enthesopathy of hip region - *Chronic Back pain - *Chronic Skin lesion - [...] or removal of nonsurgical wou - *Acute HEMATURIA NOS - *Chronic Family History Family Member Diagnosis Age At Onset Status Family h/o (Unknown) Obesity Yes Family h/o (Unknown) Diabetes Yes Family h/o (Unknown) Hyperlipidemia Yes Family h/o (Unknown) Hypertension Yes Family h/o (Unknown) Heart disease Yes Family h/o (Unknown) Cancer Yes Social History Social History Element Description Quantity alcohol 4 drinks Allergies, Adverse Reactions, Alerts Substance [...] hours as needed 50 MG - Active [place] 5 mg-325 mg tablet take 1 tablet [...] Height Weight Pulse Rate Blood Pressure Temperature /12:30:00 65.00 in 145.00 lbs 128/70 mm[Hg] 97.9 F Procedures Procedure Date Unknown Encounters Encounter Location Date Patient Visit [facility] FC Pain Patient Visit [facility] New Patient Visit [facility] New Patient [facility] Patient [facility] New Patient [facility] New Patient [facility] Patient [facility] Patient [facility] Patient [facility] New Patient [facility] New Patient [facility] Patient Visit Conversion Patient [facility] Pain Patient [facility] New Patient [facility] New Patient [facility] Patient Visit [facility] New Patient Visit [facility] Patient Visit [facility] Advance Directives Directive Effective Date Unknown
--- OUTSIDE RECORDS SUMMARY | 2016-07-05 16:17 | XMS REPORT | Referral Summary ---
Author Author [facility], Pain Management Organization [facility] Address Unknown Phone Unavailable Care Team Providers Care Slasher Hand Name Role Phone Vipul West Primary Care Physician [phone] Encounter [facility] [id number] Date(s): 01/20/15 - 01/20/15 [facility] [address] [place], [place] [address] Discharge Diagnosis: Low back pain (finding) Discharge Diagnosis: Lumbar degenerative disc disease Discharge Diagnosis: Lumbar spondylosis Discharge Diagnosis: Lumbar spinal stenosis Discharge Diagnosis: Lumbar radiculopathy Discharge Disposition: -Home or Self Care Attending Physician: Erich Cassidy Admitting Physician: Erich Cassidy Vital Signs Most recent to 1 oldest [Reference Range]: Blood Pressure 120/76 mmHg [90-140/60-90 mmHg] (01/20/15 7:57 AM) Problem List Condition Effective Dates [...] NEEDED, # 180 caps, 11 Refill(s), Pharmacy: [facility], TAKE ONE TO TWO CAPSULES BY MOUTH 4 TIMES DAILY NEEDED Start Date: 05/29/14 Stop Date: 05/29/15 Status: Ordered cyclobenzaprine 10 mg oral tablet 1 tabs, Oral, Bedtime (once a day), as needed for spasm, # 90 tabs, 0 Refill(s) , Pharmacy: [id number], 1 tabs Oral Bedtime (once a day),PRN:as needed for spasm Start Date: 03/11/14 Status: Ordered HYDROcodone-acetaminophen 5 mg-325 mg oral tablet 1 tabs, Oral, BID, 0 Refill(s) Start Date: 01/20/15 Status: Ordered ibuprofen 200 mg oral tablet tabs, Oral, q4hr, 0 Refill(s) Start Date: 02/12/14 Status: Ordered lisinopril-hydrochlorothiazide 20 mg-12.5 mg oral tablet See Instructions, 1 tabs Oral Daily, # 90 tabs, 2 Refill(s), eRx: [id number], 1 tabs Oral Daily Start Date: 10/02/14 Status: Ordered traZODone 50 mg oral tablet See Instructions, TAKE ONE TABLET BY MOUTH AT BEDTIME, # 30 tabs, 11 Refill(s), Pharmacy: [facility], TAKE ONE TABLET BY MOUTH AT [...] Office Visit Note Author: Erich Cassidy Date: 01/20/15 Assessment/Plan Low back pain (finding) Lumbar degenerative disc disease Lumbar radiculopathy Lumbar spinal stenosis Lumbar spondylosis I discussed the patient's plan of care with Dr. Awad. I also reviewed the patient's most recent lumbar MRI with the patient using a spinal model. According to this MRI the patient has primary finding and L5-S1 where there is moderate to severe degenerative disc osteophytes into the foramen region bilaterallywith mild right and mild to moderate left foraminal narrowing. She had some improvement with her epidural but has persisting symptoms. She does seem to have some radiculopathy from the L5-S1 level and foraminal narrowing at this level. She may have a lesser component of mechanical pain from L5-S1 facet joints bilaterally. Dr. Awad recommends proceeding withbilateral L5-S1 transforaminal epidural steroid injection. The patient does understand the rationale for the procedure as well as possible complications including bleeding, infection, allergic reaction, nerve irritation or damage, and risk of spinal headache. The patient also understands other remote possible complications including paraplegia, quadriplegia, , stroke, and seizure. The patient voiced understanding and wishes to proceed. The patient does request sedation and understands there is no guarantee on insurance coverage of sedation. The patient will follow-up in 2 months following the injection. If the patient fails to improve or worsening symptoms, they will follow-up sooner. We did discuss if her symptoms persisted might need to consider facet injections at the L5-S1 level bilaterally. Discussed surgery is generally an alternative last resort. The patient voiced understanding and agrees to the above plan. Physical exam findings, history present illness, and recommendations are performed with and in agreement with Dr. Awad's findings.
--- OUTSIDE RECORDS SUMMARY | 2016-07-05 16:18 | XMS REPORT | Referral Summary ---
Author Author [facility] Organization [facility] Address Unknown Phone Unavailable Care Team Providers Care Slate Splitting Supervisor Name Role Phone No PCP, States Primary Care Physician [phone] Encounter [facility] Date(s): 01/23/15 - 01/23/15 [facility] [address] [place], [place] [address] Discharge Diagnosis: Lumbar radiculopathy Discharge Diagnosis: Lumbar spinal stenosis Discharge Disposition: 01-Home or Self Care Attending Physician: Scot Awad MD Admitting Physician: Scot Awad MD Vital Signs Most recent to 1 oldest [Reference Range]: Peripheral Pulse 66 bpm Rate [60-100 bpm] (01/23/15 2:31 PM) Respiratory Rate 16 br/min [14-20 br/min] (01/23/15 2:31 PM) Blood Pressure 129/80 mmHg [90-140/60-90 mmHg] (01/23/15 2:31 PM) SpO2 99 % (01/23/15 2:31 PM) Problem List Condition Effective Dates Status [...] NEEDED, # 180 caps, 11 Refill(s), Pharmacy: [facility], TAKE ONE TO TWO CAPSULES BY MOUTH 4 TIMES DAILY NEEDED Start Date: 05/29/14 Stop Date: 05/29/15 Status: Ordered cyclobenzaprine 10 mg oral tablet 1 tabs, Oral, Bedtime (once a day), as needed for spasm, # 90 tabs, 0 Refill(s) , Pharmacy: [id number], 1 tabs Oral Bedtime [...] Daily, # 90 tabs, 2 Refill(s), eRx: [id number], 1 tabs Oral Daily Start Date: 10/02/14 Status: Ordered traZODone 50 mg oral tablet See Instructions, TAKE ONE TABLET BY MOUTH AT BEDTIME, # 30 tabs, 11 Refill(s), Pharmacy: [id number], TAKE ONE TABLET BY MOUTH AT BEDTIME Start Date: 11/27/14 Status: Ordered Results No data available for this section Immunizations Vaccine Date Refusal Reason tetanus/diphth/pertuss (Tdap) adult/adol 02/23/06 influenza virus vaccine, inactivated 01/28/14 influenza virus vaccine, live 02/09/13 influenza virus vaccine, live 02/02/12 Procedures Procedure Date Related Diagnosis Body Site Bilateral L5- S1 Transforaminal 01/23/15 Injection(s), anesthetic agent and/or 01/23/15 steroid, transforaminal epidural, with imaging guidance (fluoroscopy or CT); lumbar or sacral, single level Injection(s), anesthetic agent and/or 01/23/15 steroid, transforaminal epidural, with imaging guidance (fluoroscopy or CT); lumbar or sacral, single level Injection(s), anesthetic agent and/or 01/23/15 steroid, transforaminal epidural, with imaging guidance (fluoroscopy or CT); lumbar or sacral, single level Left Trochanteric Bursa Injection Under US 03/25/14 [...]
--- OUTSIDE RECORDS SUMMARY | 2016-07-05 16:18 | XMS REPORT ---
Author Author Robyn Whitley Organization [employer] Address Unknown Phone Unavailable Care Team Providers Care Blindstitch Lining Feller Name Role Phone Robyn Whitley CP Unavailable Allergies, Adverse Reactions, Alerts Substance Reaction Event Type N.K.D.A. Info Not Available Non Drug Allergy Problems Problem Type Condition Code Onset Dates Condition Status Assessment Fever, unspecified R50.9 Active Assessment Insomnia, unspecified G47.00 Active Assessment Acute pharyngitis, unspecified J02.9 Active Medications Medication Code System Code Instructions Start Date End Date Status Dosage Trazodone HCl [facility] [address]-19 50 MG Orally Once a day 1 tablet at bedtime Amoxicillin [facility] [address]-14 500 MG Orally Twice a day Dec 11, 2015 Dec 21, 2015 2 capsules Cyclobenzaprine HCl [facility] [address]-10 10 MG Orally Once a day as needed 1 tablet Citalopram Hydrobromide [facility] [address]-40 10 MG Orally Once a day 1 tablets Hydroxychloroquine Sulfate [facility] [address]-47 200 MG Orally 3 Times a day 1 tablet with food or milk Lisinopril-Hydrochlorothiazide [facility] [address]-74 20-12.5 MG Orally Once a day August 05, 2015 1 tablet Procedures Procedure Coding System Code Date OFFICE VISIT, EST-LOW COMPLEXITY (15 MIN.) CPT-4 42982 Dec 11, 2015 Vital Signs Date/Time: Dec 11, 2015 Temperature 99.0 F Height 55 in Weight 149.4 lbs Blood Pressure Diastolic 68 mm Hg Blood Pressure Systolic 118 mm Hg Cardiac Monitoring Heart Rate 87 /min BMI 34.72 Index Oximetry 98 % Respiratory Rate 16 /min Results No Known Results Summary Purpose [employer] Submission
--- OUTSIDE RECORDS SUMMARY | 2016-07-05 16:18 | XMS REPORT ---
Author Author Robyn Whitley [facility] [employer] Address Unknown Phone Unavailable Care Team Providers Care Maintenance And Custodian Supervisor Name Role Phone Robyn Whitley CP Unavailable Allergies No Known Allergies Problems No Known Problems Medications Medication Code System Code Instructions Start Date End Date Status Dosage Lisinopril-Hydrochlorothiazide [facility] [address]-00 20-12.5 MG Orally Once a day August 05, 2015 1 tablet Results No Known Results Summary Purpose [employer] Submission
--- OUTSIDE RECORDS SUMMARY | 2016-07-05 16:18 | XMS REPORT | Referral Summary ---
Author Organization Unknown Address Unknown Phone Unavailable Care Team Providers Care Branch Coordinator Name Role Phone Vipul West Primary Care Physician [phone] Encounter FAUSTINO [id number] Date(s): 05/29/14 - 05/29/14 [facility] [address] [place] [address] [place] [address] Discharge Diagnosis: Herpes Discharge Diagnosis: Well woman exam Discharge Diagnosis: Low back pain Discharge Diagnosis: Visit for screening mammogram Discharge Diagnosis: Hypertension Discharge Disposition: Home or Self Care Attending Physician: Ramona Lopez APRN Admitting Physician: Ramona Lopez APRN Vital Signs Most recent to 1 oldest [Reference Range]: Temperature Tympanic 37 degC [36.6-38.1 degC] (05/29/14 8:13 AM) Peripheral Pulse 68 bpm Rate [60-100 bpm] (05/29/14 8:13 AM) Blood Pressure 120/64 mmHg [90-140/60-90 mmHg] (05/29/14 8:13 AM) Problem List Condition Effective Dates Status [...] NEEDED, # 180 caps, 11 Refill(s), Pharmacy: [facility], TAKE ONE TO TWO CAPSULES BY MOUTH 4 TIMES DAILY NEEDED Special Instructions: TAKE ONE TO TWO CAPSULES BY MOUTH 4 TIMES DAILY NEEDED Start Date: 05/29/14 Stop Date: 05/29/15 Status: Ordered cyclobenzaprine 10 mg oral tablet 1 tabs, Oral, Bedtime (once a day), as needed for spasm, # 90 tabs, 0 Refill(s) , Pharmacy: [facility], 1 tabs Oral [...] BEDTIME, # 30 tabs, 11 Refill(s), Pharmacy: [facility], TAKE ONE TABLET [...] Extracted from: Title: Ambulatory Patient Education Author: Ramona Lopez APRN Date : 05/29/14 Family Medicine Health Maintenance, Female A healthy [...] for people who have at least a 49-zhti-cepf history of smoking and are a current [...] Revised: 07/30/2013 Document Reviewed: ExitCare Patient Information 2014 [employer] [facility]. No follow up information was provided. Extracted from: Title: Office Visit Note Author: Ramona Lopez APRN Date: 05/29/14 Assessment/Plan 1.Well woman exam mammo. yearly exams. 2.Herpes rf of med. Hypertension may rf med when need. Low back pain may rf flexeril when need. Visit for screening mammogram Ordered: MG Mammogram Routine Screening Bilat Orders: acyclovir, See Instructions, TAKE ONE TO TWO CAPSULES BY MOUTH 4 TIMES DAILY NEEDED, # 180 caps, 2 Refill(s), Pharmacy: [facility] , TAKE ONE TO TWO CAPSULES BY MOUTH 4 TIMES DAILY NEEDED traZODone, See Instructions, TAKE ONE TABLET BY MOUTH AT BEDTIME, # 30 tabs, 3 Refill(s), Pharmacy: [facility], over due for appointment, TAKE ONE TABLET BY MOUTH AT BEDTIME
--- OUTSIDE RECORDS SUMMARY | 2016-07-05 16:18 | XMS REPORT | Referral Summary ---
Author Author [facility] Organization [facility] Address Unknown Phone Unavailable Care Team Providers Care Textile Artist Name Role Phone No PCP, States Primary Care Physician [phone] Encounter VC Date(s): 10/16/14 - 10/16/14 [facility] [address] [place], [place] [address] Discharge Disposition: 01-Home or Self Care Attending Physician: Benja Luna MD Admitting Physician: Benja Luna MD Vital Signs No data available for this section Problem List Condition Effective Dates Status Health [...] NEEDED, # 180 caps, 11 Refill(s), Pharmacy: [facility], TAKE ONE TO TWO CAPSULES BY MOUTH 4 TIMES DAILY NEEDED Start Date: 05/29/14 Stop Date: 2/11/16 Status: Ordered cyclobenzaprine 10 mg oral tablet 1 tabs, Oral, Bedtime (once a day), as needed for spasm, # 90 tabs, 0 Refill(s) , Pharmacy: [facility], 1 tabs Oral Bedtime (once a day),PRN:as needed for spasm Start Date: 03/11/14 Status: Ordered ibuprofen 200 mg oral tablet tabs, Oral, q4hr, 0 Refill(s) Start Date: 02/12/14 Status: Ordered lisinopril-hydrochlorothiazide 20 mg-12.5 mg oral tablet See Instructions, 1 tabs Oral Daily, # 90 tabs, 2 Refill(s), eRx: [id number], 1 tabs Oral Daily Start Date: 10/02/14 Status: Ordered traZODone 50 mg oral tablet See Instructions, TAKE ONE TABLET BY MOUTH AT BEDTIME, # 30 tabs, 11 Refill(s), Pharmacy: [facility], TAKE ONE TABLET BY [...]
--- OUTSIDE RECORDS SUMMARY | 2016-07-05 16:18 | XMS REPORT | Referral Summary ---
Author Author [facility] Organization [facility] Address Unknown Phone Unavailable Care Team Providers Care Testing Machine Operator Name Role Phone Kaleb Theodore Primary Care Physician [phone] Encounter VC Date(s): 09/16/15 - 09/16/15 [facility] [address] [place], [place] [address] Discharge Diagnosis: Daily headache Discharge Diagnosis: Alopecia areata Discharge Diagnosis: Dry eyes Discharge Diagnosis: Fatigue Discharge Disposition: 01-Home or Self Care Attending Physician: Nicole Vu MD Admitting Physician: Nicole Vu MD Referring Physician: Ramirez Theodore DO Vital Signs Most recent to 1 oldest [Reference Range]: Temperature Oral 37.0 degC [35.8-37.3 degC] (09/16/15 10:17 AM) Peripheral Pulse 71 bpm Rate [60-100 bpm] (09/16/15 10:17 AM) Blood Pressure 131/80 mmHg [90-140/60-90 mmHg] (09/16/15 10:17 AM) Problem List Condition Effective Dates Status [...] # 90 tabs, 0 Refill(s) , Pharmacy: [facility], 1 tabs Oral Bedtime [...] BID, # 60 tabs, 2 Refill(s), Pharmacy: [facility], 1 tabs Oral BID Start Date: 09/16/15 Status: Ordered ibuprofen 200 mg oral tablet 3-4 tabs, Oral, TID, occasionally QID, 0 Refill(s) Start Date: 02/12/14 Status: Ordered lisinopril-hydrochlorothiazide 20 mg-12.5 mg oral tablet See Instructions, 1 tabs Oral Daily, # 90 tabs, 2 Refill(s), eRx: [facility], 1 tabs Oral Daily [...] food, # 30 tabs, 0 Refill(s), [facility], 4 tabs Oral Daily for 3d, 3 qd x 3d, 2 qd x 3d, 1 qd x 3d; with food Start Date: 09/16/15 Status: Ordered traZODone 50 mg oral tablet See Instructions, TAKE ONE TABLET BY MOUTH AT BEDTIME, # 30 tabs, 11 Refill(s), Pharmacy: [facility], TAKE ONE TABLET BY MOUTH AT BEDTIME Start Date: 11/27/14 Status: Ordered Results Chemistry Most recent to 1 oldest [Reference Range]: TSH with Reflex Free 1.15 T4 [0.35-4.94] (09/16/15 11:33 AM) Immunizations Vaccine Date Refusal Reason tetanus/diphth/pertuss (Tdap) adult/adol 02/23/06 influenza virus vaccine, inactivated 01/28/14 influenza virus vaccine, live 02/09/13 influenza virus vaccine, live 02/02/12 Procedures Procedure Date Related Diagnosis Body Site Collection of venous blood by venipuncture 09/16/15 Left L4-5/L5-S1 Facet 08/20/15 Bilateral L5- S1 [...] Extracted from: Title: Office Visit Note Author: Nicole Vu MD Date: 09/16/15 Assessment/Plan 1.Fatigue 2.Alopecia areata 3.Dry eyes Ordered: LIVIA Panel, Quantitative 4.Daily headache Ordered: MRI Brain w/ + w/o Contrast Orders: acetaminophen/aspirin/caffeine, 2 tabs, Oral, TID, as needed for headache, # 50 tabs, 0 Refill(s), other reason (Rx) hydroxychloroquine, 200 mg 1 tabs, Oral, BID, # 60 tabs, 2 Refill(s), [facility], 1 tabs Oral BID LORazepam, See Instructions, Take one tab 45 minutes before MRI and may repeat 15 minutes before MRI if needed, # 2 tabs, 0 Refill(s) predniSONE, See Instructions, 4 tabs Oral Daily for 3d, 3 qd x 3d, 2 qd x 3d, 1 qd x 3d with food, # 30 tabs, 0 Refill(s), Pharmacy: [facility], 4 tabs Oral Daily for 3d, 3 qd x 3d, 2 qd x 3d, 1 qd x 3d; with food
--- OUTSIDE RECORDS SUMMARY | 2016-07-05 16:18 | XMS REPORT | Referral Summary ---
Author Author [facility] Organization [facility] Address Unknown Phone Unavailable Care Team Providers Care Track Inspecting Supervisor Name Role Phone No PCP, States Primary Care Physician [phone] Encounter VC Date(s): 10/11/14 - 10/11/14 [facility] [address] [place] [address] Discharge Diagnosis: Sinusitis Discharge Disposition: 01-Home or Self Care Attending Physician: Josef Arcos MD Admitting Physician: Josef Arcos MD Vital Signs Most recent to 1 oldest [Reference Range]: Temperature Tympanic 36.7 degC [36.6-38.1 degC] (10/11/14 7:14 PM) Apical Heart Rate 71 bpm [60-100 bpm] (10/11/14 7:14 PM) Blood Pressure 114/68 mmHg [90-140/60-90 mmHg] (10/11/14 7:14 PM) SpO2 99 % (10/11/14 7:14 PM) Problem List Condition Effective Dates Status Health Status Informant Allergies(Confirmed) Active Allergic Active rhinitis/hay fever(Confirmed) Anxiety(Confirmed) Active Atrial Active fibrillation(Confirm ed) Lumbar degenerative Active disc disease(Confirmed) Displacement of Active lumbar intervertebral disc(Confirmed) Dry eyes(Confirmed) Active Enthesopathy of hip Active region (disorder)(Confirmed ) Granuloma 2003 Active inguinale(Confirmed) Heart Active murmur(Confirmed) Hypertension(Confirm 2007 Active ed) Irregular heart Active rhythm(Confirmed) Low [...] NEEDED, # 180 caps, 11 Refill(s), Pharmacy: [facility], TAKE ONE TO TWO CAPSULES BY MOUTH 4 TIMES DAILY NEEDED Start Date: 05/29/14 Stop Date: 05/29/15 Status: Ordered cyclobenzaprine 10 mg oral tablet 1 tabs, Oral, Bedtime (once a day), as needed for spasm, # 90 tabs, 0 Refill(s) , Pharmacy: [facility], 1 tabs Oral Bedtime (once a day),PRN:as needed for spasm Start Date: 03/11/14 Status: Ordered ibuprofen 200 mg oral tablet tabs, Oral, q4hr, 0 Refill(s) Start Date: 02/12/14 Status: Ordered lisinopril-hydrochlorothiazide 20 mg-12.5 mg oral tablet See Instructions, 1 tabs Oral Daily, # 90 tabs, 2 Refill(s), eRx: [facility], 1 tabs Oral Daily Start Date: 10/02/14 Status: Ordered traZODone 50 mg oral tablet See Instructions, TAKE ONE TABLET BY MOUTH AT BEDTIME, # 30 tabs, 11 Refill(s), Pharmacy: [facility], TAKE ONE TABLET BY [...] Extracted from: Title: Office Visit Note Author: Josef Arcos MD Date: 10/11/14 Assessment/Plan Sinusitis I elected to put her on Levaquin 500 mg daily. I've asked her to take Mucinex twice a day over the next 5-7 days. If she is not doing at least some better by midweek next week I encouraged her to follow-up with Dr. West she may need a sinus CT scan. Orders: levofloxacin, 500 mg 1 tabs, Oral, q24hr, X 10 days, # 10 tabs, 0 Refill(s), Pharmacy: [id number], 1 tabs Oral q24hr,x10 days
--- OUTSIDE RECORDS SUMMARY | 2016-07-05 16:18 | XMS REPORT | Referral Summary ---
Author Author [facility] Organization [facility] Address Unknown Phone Unavailable Care Team Providers Care Community Specialist Name Role Phone Gray Be Primary Care Physician [phone] Encounter VC Date(s): 02/19/16 - 02/19/16 [facility], [address] [place] [address] Discharge Diagnosis: Encounter for immunization Discharge Disposition: 01-Home or Self Care Attending Physician: Jael Be DO Admitting Physician: Jael Be DO Vital Signs Most recent to 1 oldest [Reference Range]: Peripheral Pulse 79 bpm Rate [60-100 bpm] (02/19/16 8:56 AM) Blood Pressure 116/70 mmHg [90-140/60-90 mmHg] (02/19/16 8:56 AM) SpO2 97 % (02/19/16 8:56 AM) Problem List Condition Effective Dates Status Health Status Informant Allergies(Confirmed) Active Allergic Active rhinitis/hay fever(Confirmed) Anxiety(Confirmed) Active Lumbar degenerative Active disc disease(Confirmed) Displacement of Active lumbar intervertebral disc(Confirmed) High risk medication Active use(Confirmed) Enthesopathy of hip Active region (disorder)(Confirmed ) Granuloma 2003 Active inguinale(Confirmed) Heart Active murmur(Confirmed) Hypertension(Confirm 2007 Active ed) Primary generalized Active (osteo)arthritis(Con firmed) Low back pain Active (finding)(Confirmed) Lumbar Active radiculopathy(Confir med) Lumbar Active spondylosis(Confirme d) STD (sexually 2003 - 04/25/14 Resolved transmitted disease)(Confirmed) Systemic lupus Active erythematosus(Confir med) Dry eyes(Confirmed) Active Trochanteric Active bursitis, left hip(Confirmed) Chicken < 04/25/14 Resolved pox(Confirmed) Allergies, Adverse Reactions, Alerts No Known Medication Allergies Medications acyclovir 800 mg oral tablet 800 mg 1 tabs, Oral, 5x/Day, NEEDED, # 35 tabs, 0 Refill(s), Pharmacy: [facility], 1 tabs Oral 5x/Day,Instr: NEEDED Start Date: 02/19/16 Status: Ordered citalopram 10 mg oral tablet 10 mg 1 tabs, Oral, Daily, # 90 tabs, 1 Refill(s), Pharmacy: [facility], 1 tabs Oral Daily Start Date: 02/19/16 Status: Ordered cyclobenzaprine 10 mg oral tablet 10 mg 1 tabs, Oral, Bedtime (once a day), as needed for spasm, # 90 tabs, 0 Refill(s), Pharmacy: [facility], 1 tabs Oral Bedtime (once a day), PRN:as needed for spasm Start Date: 11/17/15 Status: Ordered famotidine 10 mg oral tablet 10 mg 1 tabs, Oral, BID, # 180 tabs, 0 Refill(s) Start Date: 08/11/15 Status: Ordered hydroxychloroquine 200 mg oral tablet 200 mg 1 tabs, Oral, BID, # 60 tabs, 5 Refill(s), Pharmacy: [facility], 1 tabs Oral BID Start Date: 02/18/16 Status: Ordered ibuprofen 200 mg oral tablet 3-4 tabs, Oral, TID, occasionally QID, 0 Refill(s) Start Date: 02/12/14 Status: Ordered lisinopril-hydrochlorothiazide 20 mg-12.5 mg oral tablet See Instructions, 1 tabs Oral Daily, # 90 tabs, 2 Refill(s), eRx: [facility], 1 tabs Oral Daily Start Date: 10/02/14 Status: Ordered Results No data available for this section Immunizations Vaccine Date Refusal Reason tetanus/diphth/pertuss (Tdap) adult/adol 02/19/16 tetanus/diphth/pertuss (Tdap) adult/adol 02/23/06 influenza virus vaccine, inactivated 01/28/14 influenza virus vaccine, live 02/09/13 influenza virus vaccine, live 02/02/12 Procedures Procedure Date Related Diagnosis Body Site Left L4-5/L5-S1 Facet 08/20/15 Bilateral L5- S1 Transforaminal 01/23/15 Mammogram 06/18/14 Left Trochanteric Bursa Injection Under US 03/25/14 Left L4-5/L5-S1 Facet 02/21/14 Left L5-S1 translaminar 06/14/13 Lt L5-S1 transforaminal 03/16/12 Lt L5-S1 transforaminal 06/14/11 S/p left breast biopsy 07/04/09 Vaginal Pap smear 09/30/08 Hysterectomy 2002 Arthroplasty1 1992 Status post debridement of bone spur, left ankle 1Left ankle and foot for bone spurs Social History Social History Type Response Smoking Status Never smoker Assessment and Plan No data available for this section
--- OUTSIDE RECORDS SUMMARY | 2016-07-05 16:18 | XMS REPORT | Referral Summary ---
Author Author [facility] Organization [facility] Address Unknown Phone Unavailable Care Team Providers Care Ferryboat Operator Name Role Phone Kaleb Theodore Primary Care Physician [phone] Encounter VC Date(s): 01/23/15 - 01/23/15 [facility] [address] [place], [place] [address] Discharge Diagnosis: Lumbar radiculopathy Discharge [...] # 90 tabs, 0 Refill(s) , Pharmacy: [facility], 1 tabs Oral Bedtime (once a day),PRN:as needed for spasm Start Date: 03/11/14 Status: Ordered ibuprofen 200 mg oral tablet tabs, Oral, q4hr, 0 Refill(s) Start Date: 02/12/14 Status: Ordered lisinopril-hydrochlorothiazide 20 mg-12.5 mg oral tablet See Instructions, 1 tabs Oral Daily, # 90 tabs, 2 Refill(s), eRx: [facility], 1 tabs Oral Daily Start Date: 10/02/14 Status: Ordered traZODone 50 mg oral tablet See Instructions, TAKE ONE TABLET BY MOUTH AT BEDTIME, # 30 tabs, 11 Refill(s), Pharmacy: [facility], TAKE ONE TABLET BY [...]
--- OUTSIDE RECORDS SUMMARY | 2016-07-05 16:18 | XMS REPORT | Referral Summary ---
Author Author [facility] Organization [facility] Address Unknown Phone Unavailable Care Team Providers Care Talent Director Name Role Phone Gray Be Primary Care Physician [phone] Encounter VC Date(s): 03/18/16 - 03/18/16 [facility] [address] [place], [place] [address] Discharge Disposition: 01-Home or Self Care Attending Physician: Nicole Vu MD Admitting Physician: Nicole Vu MD Vital Signs No data available for this section Problem List Condition Effective Dates Status Health Status Informant Allergies(Confirmed) Active Allergic Active rhinitis/hay fever(Confirmed) Anxiety(Confirmed) Active Lumbar degenerative Active disc disease(Confirmed) Displacement of Active lumbar intervertebral disc(Confirmed) High risk medication Active use(Confirmed) Enthesopathy of hip Active region (disorder)(Confirmed ) Genital Active herpes(Confirmed) Chronic Active GERD(Confirmed) Granuloma 2003 Active inguinale(Confirmed) Heart Active murmur(Confirmed) [...] NEEDED, # 35 tabs, 0 Refill(s), Pharmacy: [facility], 1 tabs Oral 5x/Day,Instr: NEEDED Start Date: 02/19/16 Status: Ordered citalopram 10 mg oral tablet 10 mg 1 tabs, Oral, Daily, # 90 tabs, 1 Refill(s), Pharmacy: [facility], 1 tabs Oral Daily Start Date: 02/19/16 Status: Ordered cyclobenzaprine 10 mg oral tablet 10 mg 1 tabs, Oral, Bedtime (once a day), as needed for spasm, # 90 tabs, 0 Refill(s), Pharmacy: [facility], 1 tabs Oral Bedtime (once a day), PRN:as needed for spasm Start Date: 11/17/15 Status: Ordered famotidine 10 mg oral tablet 10 mg 1 tabs, Oral, BID, # 180 tabs, 0 Refill(s) Start Date: 08/11/15 Status: Ordered hydroxychloroquine 200 mg oral tablet 200 mg 1 tabs, Oral, BID, # 60 tabs, 5 Refill(s), Pharmacy: [facility], 1 tabs Oral BID Start Date: 02/18/16 Status: Ordered ibuprofen 200 mg oral tablet 3-4 tabs, Oral, TID, occasionally QID, 0 Refill(s) Start Date: 02/12/14 Status: Ordered lisinopril-hydrochlorothiazide 20 mg-12.5 mg oral tablet See Instructions, 1 tabs Oral Daily, # 90 tabs, 2 Refill(s), eRx: [facility], 1 tabs Oral [...] smoker Assessment and Plan Extracted from: Title: D/D Author: Татьяна Blanco RN Date: 03/18/16 DEPOMEDROL 80MG & CELESTONE 6MG IM GIVEN TODAY [facility] RN
--- OUTSIDE RECORDS SUMMARY | 2016-07-05 16:18 | XMS REPORT | Referral Summary ---
Author Author [facility] Organization [facility] Address Unknown Phone Unavailable Care Team Providers Care Systems Protection Technician Name Role Phone Gray Be Primary Care Physician [phone] Encounter VC Date(s): 12/19/14 - 12/19/14 [facility] [address] [place], [place] [address] Discharge Diagnosis: Enthesopathy of hip region (disorder) Discharge Diagnosis: Hip pain Discharge Disposition: 01-Home or Self Care Attending Physician: Scot Awad MD Admitting Physician: Scot Awad MD Vital Signs Most recent to 1 oldest [Reference Range]: Blood Pressure 114/73 mmHg [90-140/60-90 mmHg] (12/19/14 3:40 PM) Problem List Condition Effective Dates Status [...] Body Site Bilateral L5- S1 Transforaminal 01/23/15 Arthrocentesis, aspiration and/or injection, 12/19/14 major joint or bursa (eg, shoulder, hip, knee, subacromial bursa); with ultrasound guidance, with permanent recording and reporting Arthrocentesis, aspiration and/or injection, 12/19/14 major joint or bursa (eg, shoulder, hip, knee, subacromial bursa); with ultrasound guidance, with permanent recording and reporting Arthrocentesis, aspiration and/or injection, 12/19/14 major joint or bursa (eg, shoulder, hip, knee, subacromial bursa); with ultrasound guidance, with permanent recording and reporting Arthrocentesis, aspiration and/or injection, 12/19/14 major joint or bursa (eg, shoulder, hip, knee, subacromial bursa); without ultrasound guidance Arthrocentesis, aspiration and/or injection, 12/19/14 major joint or bursa (eg, shoulder, hip, knee, subacromial bursa); without ultrasound guidance Left Trochanteric Bursa Injection Under US 03/25/14 [...]
--- OUTSIDE RECORDS SUMMARY | 2016-07-05 16:18 | XMS REPORT | Referral Summary ---
Author Author [facility] Organization [facility] Address Unknown Phone Unavailable Care Team Providers Care Mat Linker Name Role Phone Kaleb Theodore Primary Care Physician [phone] Encounter VC Date(s): 01/20/15 - 01/20/15 [facility] [address] [place], [place] [address] Discharge Diagnosis: Low back pain (finding) [...] 2004 Active inguinale(Confirmed) Heart Active murmur(Confirmed) Hypertension(Confirm 2007 [...] # 90 tabs, 0 Refill(s) , Pharmacy: [id number], 1 tabs Oral Bedtime (once a day),PRN:as needed for spasm Start Date: 03/11/14 Status: Ordered ibuprofen 200 mg oral tablet tabs, Oral, q4hr, 0 Refill(s) Start Date: 02/12/14 Status: Ordered lisinopril-hydrochlorothiazide 20 mg-12.5 mg oral tablet See Instructions, 1 tabs Oral Daily, # 90 tabs, 2 Refill(s), eRx: [id number], 1 tabs Oral Daily Start Date: 10/02/14 Status: Ordered traZODone 50 mg oral tablet See Instructions, TAKE ONE TABLET BY MOUTH AT BEDTIME, # 30 tabs, 11 Refill(s), Pharmacy: [facility], TAKE ONE TABLET BY [...]
--- OUTSIDE RECORDS SUMMARY | 2016-07-05 16:18 | XMS REPORT | Referral Summary ---
Author Author [facility] Organization [facility] Address Unknown Phone Unavailable Care Team Providers Care Tube And Rod Straightener Name Role Phone Kaleb Theodore Primary Care Physician [phone] Encounter [facility] Date(s): 02/18/16 - 02/18/16 [facility] [address] [place], [place] [address] Discharge Diagnosis: Primary generalized (osteo)arthritis Discharge Diagnosis: High risk medication use Discharge Diagnosis: Systemic lupus erythematosus Discharge Disposition: 01-Home or Self Care Attending Physician: Nicole Vu MD Admitting Physician: Nicole Vu MD Vital Signs Most recent to 1 oldest [Reference Range]: Temperature Oral 36.7 degC [35.8-37.3 degC] (02/18/16 10:45 AM) Peripheral Pulse 69 bpm Rate [60-100 bpm] (02/18/16 10:45 AM) Blood Pressure 118/76 mmHg [90-140/60-90 mmHg] (02/18/16 10:45 AM) Problem List Condition Effective Dates Status [...] tabs, Oral, Daily, # 30 tabs, 0 Refill(s), Pharmacy: [facility], 1 tabs Oral Daily Start Date: 01/20/16 Status: Ordered cyclobenzaprine 10 mg oral tablet 10 mg 1 tabs, Oral, Bedtime (once a day), as needed for spasm, # 90 tabs, 0 Refill(s), Pharmacy: [facility], 1 tabs Oral Bedtime (once a day), PRN:as needed for spasm Start Date: 11/17/15 Status: Ordered famotidine 10 mg oral tablet 10 mg 1 tabs, Oral, BID, # 180 tabs, 0 Refill(s) Start Date: 08/11/15 Status: Ordered hydroxychloroquine 200 mg oral tablet 200 mg 1 tabs, Oral, BID, # 60 tabs, 5 Refill(s), Pharmacy: [facility], 1 tabs Oral BID Start Date: 02/18/16 Status: Ordered ibuprofen 200 mg oral tablet 3-4 tabs, Oral, TID, occasionally QID, 0 Refill(s) Start Date: 02/12/14 Status: Ordered lisinopril-hydrochlorothiazide 20 mg-12.5 mg oral tablet See Instructions, 1 tabs Oral Daily, # 90 tabs, 2 Refill(s), eRx: [id number], 1 tabs Oral [...] Vaginal Pap smear 09/30/08 Hysterectomy 2002 Arthroplasty1 1993 Status post debridement of bone spur, left ankle 1Left ankle and foot for bone spurs Social History Social History Type Response Smoking Status Never smoker Assessment and Plan No data available for this section
--- OUTSIDE RECORDS SUMMARY | 2016-07-05 16:18 | XMS REPORT | Referral Summary ---
Author Author [facility] Organization [facility] Address Unknown Phone Unavailable Care Team Providers Care Transformer Inspector Name Role Phone Kaleb Theodore Primary Care Physician [phone] Encounter [facility] Date(s): 11/17/15 - 11/17/15 [facility] [address] [place], [place] [address] Discharge Diagnosis: Low back pain (finding) Discharge Diagnosis: Systemic lupus erythematosus Discharge Diagnosis: High risk medication use Discharge Disposition: 01-Home or Self Care Attending Physician: Nicole Vu MD Admitting Physician: Nicole Vu MD Vital Signs Most recent to 1 oldest [Reference Range]: Temperature Oral 37.0 degC [35.8-37.3 degC] (11/17/15 1:10 PM) Peripheral Pulse 63 bpm Rate [60-100 bpm] (11/17/15 1:10 PM) Blood Pressure 116/65 mmHg [90-140/60-90 mmHg] (11/17/15 1:10 PM) Problem List Condition Effective Dates [...] spasm, # 90 tabs, 0 Refill(s), Pharmacy: [facility], 1 tabs Oral Bedtime (once a day), PRN:as needed for spasm Start Date: 11/17/15 Status: Ordered Excedrin Migraine oral tablet 2 [...] BID, # 60 tabs, 2 Refill(s), Pharmacy: [facility], 1 tabs Oral BID Start Date: 09/16/15 Status: Ordered hydroxychloroquine 200 mg oral tablet 200 mg 1 tabs, Oral, TID, for 4 weeks only, # 90 tabs, 0 Refill(s), Pharmacy: [facility], to resume BID dosing in 4 weeks, 1 tabs Oral TID,Instr: for 4 weeks only Start Date: 11/17/15 Status: Ordered ibuprofen 200 mg oral tablet 3-4 tabs, Oral, TID, occasionally QID, 0 Refill(s) Start Date: 02/12/14 Status: Ordered lisinopril-hydrochlorothiazide 20 mg-12.5 mg oral tablet See Instructions, 1 tabs Oral Daily, # 90 tabs, 2 Refill(s), eRx: [facility], 1 tabs Oral Daily Start Date: 10/02/14 Status: Ordered LORazepam 1 mg oral tablet See Instructions, Take one tab 45 minutes before MRI and may repeat 15 minutes before MRI if needed, # 2 tabs, 0 Refill(s) Start Date: 09/16/15 Status: Ordered traZODone 50 mg oral tablet See Instructions, TAKE ONE TABLET BY MOUTH AT BEDTIME, # 30 tabs, 11 Refill(s), Pharmacy: [facility], TAKE ONE TABLET BY MOUTH [...] Visit Note Author: Nicole Vu MD Date: 11/17/15 Assessment/Plan 1.Systemic lupus erythematosus 2.Low back pain (finding) 3.High risk medication use Orders: cyclobenzaprine, 10 mg 1 tabs, Oral, Bedtime (once a day), as needed for spasm, # 90 tabs, 0 Refill(s), Pharmacy: [email or web address], 1 tabs Oral Bedtime (once a day),PRN:as needed for spasm hydroxychloroquine, 200 mg 1 tabs, Oral, TID, for 4 weeks only, # 90 tabs, 0 Refill(s), Pharmacy: [facility], to resume BID dosing in 4 weeks, 1 tabs Oral TID,Instr:for 4 weeks only
--- OUTSIDE RECORDS SUMMARY | 2016-07-05 16:18 | XMS REPORT | Referral Summary ---
Author Author [facility] Organization [facility] Address Unknown Phone Unavailable Care Team Providers Care Postal Carrier Name Role Phone Kaleb Theodore Primary Care Physician [phone] Encounter [facility] Date(s): 09/03/15 - 09/03/15 [facility] [address] [place], [place] [address] Discharge Diagnosis: Trochanteric bursitis, left hip Discharge Disposition: 01-Home or Self Care Attending Physician: Scot Awad MD Admitting Physician: Scot Awad MD Vital Signs Most recent to 1 oldest [Reference Range]: Blood Pressure 119/82 mmHg [90-140/60-90 mmHg] (09/03/15 2:57 PM) Problem List Condition Effective Dates Status [...] # 90 tabs, 0 Refill(s) , Pharmacy: [facility], 1 tabs Oral Bedtime (once [...] Daily, # 90 tabs, 2 Refill(s), eRx: [facility], 1 tabs Oral Daily Start Date: 10/02/14 Status: Ordered traZODone 50 mg oral tablet See Instructions, TAKE ONE TABLET BY MOUTH AT BEDTIME, # 30 tabs, 11 Refill(s), Pharmacy: [facility], TAKE ONE TABLET BY MOUTH AT BEDTIME Start Date: 11/27/14 Status: Ordered Results No data available for this section Immunizations Vaccine Date Refusal Reason tetanus/diphth/pertuss (Tdap) adult/adol 02/23/06 influenza virus vaccine, inactivated 01/28/14 influenza virus vaccine, live 02/09/13 influenza virus vaccine, live 02/02/12 Procedures Procedure Date Related Diagnosis Body Site Arthrocentesis, aspiration and/or injection, 09/03/15 major joint or bursa (eg, shoulder, hip, knee, subacromial bursa); without ultrasound guidance Left L4-5/L5-S1 Facet 08/20/15 Bilateral L5- S1 [...]
--- OUTSIDE RECORDS SUMMARY | 2016-07-05 16:19 | XMS REPORT | Referral Summary ---
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 Role Phone Gray Be Primary Care Physician [phone] Encounter [facility] [id number] Date(s): 05/20/16 - 05/20/16 [facility] [address] [place], [place] [address] Discharge Diagnosis: Systemic lupus erythematosus Discharge Diagnosis: Short-term memory loss Discharge Diagnosis: Primary generalized (osteo)arthritis Discharge Diagnosis: High risk medication use Discharge Disposition: 01-Home or Self Care Attending Physician: Nicole Vu MD Admitting Physician: Nicole Vu MD Referring Physician: Ramirez Theodore DO Vital Signs Most recent to 1 oldest [Reference Range]: Peripheral Pulse 74 bpm Rate [60-100 bpm] (05/20/16 8:35 AM) Blood Pressure 116/79 mmHg [90-140/60-90 mmHg] (05/20/16 8:35 AM) Problem List Condition Effective Dates Status [...] Active radiculopathy(Confir med) Lumbar Active spondylosis(Confirme d) Short-term memory Active loss(Confirmed) STD (sexually 2003 - 04/25/14 Resolved transmitted disease)(Confirmed) Systemic lupus Active erythematosus(Confir med) Dry eyes(Confirmed) Active Trochanteric Active bursitis, left hip(Confirmed) Chicken < 04/25/14 Resolved pox(Confirmed) Allergies, Adverse Reactions, Alerts No Known Medication Allergies Medications acyclovir 800 mg oral tablet 800 mg 1 tabs, Oral, 5x/Day, NEEDED, # 35 tabs, 0 Refill(s), Pharmacy: [facility], 1 tabs Oral 5x/Day,Instr: NEEDED Start Date: 02/19/16 Status: Ordered citalopram 10 mg oral tablet 10 mg 1 tabs, Oral, Daily, # 90 tabs, 1 Refill(s), Pharmacy: [facility], 1 tabs Oral Daily Start Date: 02/19/16 Status: Ordered cyclobenzaprine 10 mg oral tablet 10 mg 1 tabs, Oral, Bedtime (once a day), as needed for spasm, # 90 tabs, 1 Refill(s), Pharmacy: [facility], 1 tabs Oral Bedtime (once a day), PRN:as needed for spasm Start Date: 05/20/16 Status: Ordered hydroxychloroquine 200 mg oral tablet 200 mg 1 tabs, Oral, BID, # 60 tabs, 5 Refill(s), Pharmacy: [facility], 1 tabs Oral BID Start Date: 02/18/16 Status: Ordered ibuprofen 200 mg oral tablet 3-4 tabs, Oral, TID, once or twice a week, 0 Refill(s) Start Date: 02/12/14 Status: Ordered lisinopril-hydrochlorothiazide 20 mg-12.5 mg oral tablet See Instructions, 1 tabs Oral Daily, # 90 tabs, 2 Refill(s), eRx: [facility], 1 tabs Oral Daily Start Date: 10/02/14 Status: Ordered Results No data available for this section Immunizations Given and Recorded Vaccine Date Status Refusal Reason tetanus/diphth/pertuss (Tdap) adult/adol 02/19/16 Given tetanus/diphth/pertuss (Tdap) adult/adol 02/23/06 Recorded influenza virus vaccine, inactivated 01/28/14 Recorded influenza virus vaccine, live 02/09/13 Given influenza virus vaccine, live 02/02/12 Given Procedures Procedure Date Related Diagnosis Body Site Left L4-5/L5-S1 Facet 08/20/15 Bilateral L5- S1 Transforaminal 01/23/15 Mammogram 06/18/14 Left Trochanteric Bursa Injection Under US 03/25/14 Left L4-5/L5-S1 Facet 02/21/14 Left L5-S1 translaminar 06/14/13 Lt L5-S1 transforaminal 03/16/12 Lt L5-S1 transforaminal 06/14/11 S/p left breast biopsy 07/04/09 Vaginal Pap smear 09/30/08 Hysterectomy 2003 Arthroplasty1 1992 Status post debridement of bone spur, left ankle 1Left ankle and foot for bone spurs Social History Social History Type Response Smoking Status Never smoker Assessment and Plan Extracted from: Title: Ambulatory Patient Education Author: Татьяна Blanco RN Date: Musculoskeletal Osteoarthritis Osteoarthritis is a disease that causes soreness and inflammation of a joint. It occurs when the cartilage at the affected joint wears down. Cartilage acts as a cushion, covering the ends of bones where they meet to form a joint. Osteoarthritis is the most common form of arthritis. It often occurs in older people. The joints affected most often by this condition include those in the: Ends of the fingers. Thumbs. Neck. Lower back. Knees. Hips. CAUSES Over time, the cartilage that covers the ends of bones begins to wear away. This causes bone to rub on bone, producing pain and stiffness in the affected joints. RISK FACTORS Certain factors can increase your chances of having osteoarthritis, including: Older age. Excessive body weight. Overuse of joints. Previous joint injury. SIGNS AND SYMPTOMS Pain, swelling, and stiffness in the joint. Over time, the joint may lose its normal shape. Small deposits of bone (osteophytes) may grow on the edges of the joint. Bits of bone or cartilage can break off and float inside the joint space. This may cause more pain and damage. DIAGNOSIS Your health care provider will do a physical exam and ask about your symptoms. Various tests may be ordered, such as: X-rays of the affected joint. Blood tests to rule out other types of arthritis. Additional tests may be used to diagnose your condition. TREATMENT Goals of treatment are to control pain and improve joint function. Treatment plans may include: A prescribed exercise program that allows for rest and joint relief. A weight control plan. Pain relief techniques, such as: Properly applied heat and cold. Electric pulses delivered to nerve endings under the skin ( transcutaneous electrical nerve stimulation [TENS]). Massage. Certain nutritional supplements. Medicines to control pain, such as: Acetaminophen. Nonsteroidal anti-inflammatory drugs (NSAIDs), such as naproxen. Narcotic or central-acting agents, such as tramadol. Corticosteroids. These can be given orally or as an injection. Surgery to reposition the bones and relieve pain (osteotomy) or to remove loose pieces of bone and cartilage. Joint replacement may be needed in advanced states of osteoarthritis. HOME CARE INSTRUCTIONS Take medicines only as directed by your health care provider. Maintain a healthy weight. Follow your health care provider's instructions for weight control. This may include dietary instructions. Exercise as directed. Your health care provider can recommend specific types of exercise. These may include: Strengthening exercises. These are done to strengthen the muscles that support joints affected by arthritis. They can be performed with weights or with exercise bands to add resistance. Aerobic activities. These are exercises, such as brisk walking or low- impact aerobics, that get your heart pumping. Gwtli-lk-gygkqn activities. These keep your joints limber. Balance and agility exercises. These help you maintain daily living skills. Rest your affected joints as directed by your health care provider. Keep all follow-up visits as directed by your health care provider. SEEK MEDICAL CARE IF: Your skin turns red. You develop a rash in addition to your joint pain. You have worsening joint pain. You have a fever along with joint or muscle aches. SEEK IMMEDIATE MEDICAL CARE IF: You have a significant loss of weight or appetite. You have night sweats. FOR MORE INFORMATION National [place] of Arthritis and Musculoskeletal and Skin Diseases: www.niams.nih.gov National [place] on Aging: www.tico.nih.gov [employer]: www.rheumatology.org This information is not intended to replace advice given to you by your health care provider. Make sure you discuss any questions you have with your health care provider. Document Released: 04/04/2006 Document Revised: 04/25/2015 Document Reviewed: [employer] Interactive Patient Education 2016 [employer] No follow up information was provided. Extracted from: Title: Office Visit Note Author: Nicole Vu MD Date: 05/20/16 Assessment/Plan Return in 3 months or sooner if needed. 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 She is taking the cyclobenzaprine at bedtimeon a when necessary basis and not nightly. Takes ibuprofenwhen necessaryonce or twice a week. No evidence ofCNS lupus. Advised to make an appointment with Dr. Hess for further evaluation. Patient is afraid she is developing Alzheimer's disease. 3.Primary generalized (osteo)arthritis Continue ibuprofen as needed. 4.High risk medication use Continue [id number] mg twice a day.
--- OUTSIDE RECORDS SUMMARY | 2016-07-05 16:19 | XMS REPORT | Referral Summary ---
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 Name Role Phone Kaleb Theodore Primary Care Physician [phone] Encounter [facility] Date(s): 08/11/15 - 08/11/15 [facility] [address] [place], [place] [address] Discharge Diagnosis: Inflammatory polyarthritis Discharge Diagnosis: Facial rash Discharge Diagnosis: Alopecia of scalp Discharge Disposition: 01-Home or Self Care Attending Physician: Nicole Vu MD Admitting Physician: Nicole Vu MD Referring Physician: Ramirez Theodore DO Vital Signs Most recent to 1 oldest [Reference Range]: Temperature Oral 36.7 degC [35.8-37.3 degC] (08/11/15 1:59 PM) Peripheral Pulse 75 bpm Rate [60-100 bpm] (08/11/15 1:59 PM) Blood Pressure 122/75 mmHg [90-140/60-90 mmHg] (08/11/15 1:59 PM) Problem List Condition Effective Dates Status [...] (sexually 2003 - 04/25/14 Resolved transmitted disease)(Confirmed) Chicken < 04/25/14 Resolved pox(Confirmed) Allergies, Adverse [...] # 90 tabs, 0 Refill(s) , Pharmacy: [facility], 1 tabs Oral [...] Daily, # 90 tabs, 2 Refill(s), eRx: [facility], 1 tabs Oral Daily Start Date: 10/02/14 Status: Ordered traZODone 50 mg oral tablet See Instructions, TAKE ONE TABLET BY MOUTH AT BEDTIME, # 30 tabs, 11 Refill(s), Pharmacy: [facility], TAKE ONE TABLET BY MOUTH AT BEDTIME Start Date: 11/27/14 Status: Ordered Results Urinalysis Most recent to 1 oldest [Reference Range]: UA Color Yellow (08/11/15 3:48 PM) UA Appear Clear (08/11/15 3:48 PM) UA pH [5.0-8.0] 6.0 (08/11/15 3:48 PM) UA Leuk Est Trace [Negative] *ABN* (08/11/15 3:48 PM) UA Nitrite Negative [Negative] (08/11/15 3:48 PM) UA Protein Negative [Negative] (08/11/15 3:48 PM) UA Glucose Negative [Negative] (08/11/15 3:48 PM) UA Ketones Negative [Negative] (08/11/15 3:48 PM) UA Urobilinogen 0.2 mg/dL [<1.0 mg/dL] (08/11/15 3:48 PM) UA Bili [Negative] Negative (08/11/15 3:48 PM) UA Blood [Negative] Negative (08/11/15 3:48 PM) UA Spec Grav 1.009 [1.003-1.030] (08/11/15 3:48 PM) Type Clean Catch (08/11/15 3:48 PM) UA WBC [0-4] 0-2 (08/11/15 3:48 PM) UA RBC [0-4] 0-4 (08/11/15 3:48 PM) Epithelial Cells 2-5 (08/11/15 3:48 PM) Immunizations Vaccine Date Refusal Reason tetanus/diphth/pertuss (Tdap) [...]
--- OUTSIDE RECORDS SUMMARY | 2016-07-05 16:19 | XMS REPORT | Continuity of Care Document ---
Author Author [facility] Organization [facility] Address Unknown Phone Unavailable Allergies Medications Problems Date Dx Coded Attending Type Code Diagnosis Diagnosed By 01/24/2013 Amadeo Pham MD Final 368.8 VISUAL DISTURBANCES NEC 01/24/2013 Amadeo Pham MD Final 401.9 HYPERTENSION NOS 01/24/2013 Amadeo Pham MD Final 780.79 MALAISE FATIGUE NEC 01/24/2013 Amadeo Pham MD Admitting 786.50 CHEST PAIN NOS Procedures Results Encounters ACCT No. Visit Date/Time Discharge Status Pt. Type Provider Facility Loc./Unit Complaint [id number] 01/24/2013 18:46:00 2012 20:24:00 DIS Emergency Amadeo Pham MD [facility] TERM
--- OUTSIDE RECORDS SUMMARY | 2016-07-05 16:19 | XMS REPORT | Continuity of Care Document ---
Author Author Delmi VALDOVINOS, [facility] Amb[facility] Address 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 Name Role Phone Marzena West DAVID Unavailable Payers Payer name Insurance type Covered libertarian ID Authorization(s) Unknown Problems Condition Effective Dates (start - stop) Clinical Status Radiculitis, Thoracic or Lumbar - *Chronic Radiculitis, Thoracic or Lumbar - Chronic Myalgia - *Chronic HTN (hypertension) - *Chronic Lumbago - *Chronic Skin lesion - *Chronic Gynecological Examination - *Routine Hypertension, Unspecified - *Chronic Magnesium deficiency - *Chronic Fatigue / Malaise - *Acute Sinusitis, Acute - *Acute Cough - *Acute HEMATURIA NOS - *Chronic Lumbago - *Chronic Degeneration of lumbar or [...] hours as needed 50 MG - Active Columbia 5 mg-325 mg tablet take 1 tablet [...] Height Weight Pulse Rate Blood Pressure Temperature /14:02:00 65.00 in 145.00 lbs 76 /min 112/68 mm[Hg] 98.1 F Procedures Procedure Date Unknown Encounters Encounter Location Date Patient Visit [facility] Pain Patient Visit [facility] Patient Visit [facility] New Patient Visit [facility] Patient Visit [facility] Patient Visit [facility] Patient Visit [facility] Patient [facility] Patient [facility] Patient Visit [facility] Patient [facility] Patient [facility] Patient Visit [facility] New Patient Visit [facility] Card Patient Visit Conversion Patient Visit [facility] Patient [facility] Patient Visit [facility] Patient Visit [facility] Patient Visit [facility] Patient Visit [facility] Patient Visit [facility] Patient Visit [facility] Advance Directives Directive Effective Date Unknown
--- NOTE | 2016-07-05 16:31 | ERPDOC ---
Departure Disposition Decision Date: Jul 05, 2016 Disposition Decision Time: 19:51 (KELLY GARVIN APRN) Disposition: 01 DISCHARGED HOME, SELF-CARE Impression Impression (KELLY GARVIN APRN) Impression: Primary Impression: Gastroenteritis Condition: Improved Seen By: Mid-level only (KELLY GARVIN APRN) Referrals: JOSE WHITNEY APRN (Family) Patient Instructions: Gastroenteritis (ED) Problems/Meds/Labs Reviewed?: Yes Medications reviewed and manag: Yes (KELLY GARVIN APRN) Additional Instructions: You may take zofran 4mg ODT, dissolve one tab on tongue every 6 hours for nausea /vomiting. You may take compazine 10mg 1 tab orally every 6 hours for nausea/vomiting. This medication may cause drowsiness so avoid operating heavy machinery, driving or drinking alcohol while taking You may take norco 5/325mg, 1-2 tabs every 4-6 hours as needed for pain. This medication may cause drowsiness so avoid operating heavy machinery, driving or drinking alcohol while taking. Clear liquids only tonight. Stay well-hydrated tonight water often. Advance diet as tolerated tomorrow. If your symptoms are not improving in next 2-3 days follow with your doctor. See your doctor for follow-up on splenic infarct in approximately 1 week. Follow treatment plan. Follow up care ordered?: Yes Mental Status: Alert, Oriented (KELLY GARVIN APRN) Scripts Prochlorperazine Maleate (Compazine) 10 Mg Tablet 10 MG PO QID Y for NAUSEA &/OR VOMITING, #20 TAB Take 1 tablet, by mouth, 4 times a day. Prov: KELLY GARVIN APRN 07/05/16 Ondansetron (Zofran Odt) 4 Mg Tab.rapdis 4 MG PO Q6HR Y for NAUSEA &/OR VOMITING, #20 TAB Oral disintegrating tablet Prov: KELLY GARVIN APRN 07/05/16 Hydrocodone/Acetaminophen ([place] 5-325 Tablet) 5-325 Tablet 1-2 TAB PO Q4-6HPRN, #20 TAB Prov: KELLY GARVIN APRN 07/05/16 HPI - Abdominal Pain General Chief Complaint: Abdominal Pain Stated Complaint: ABD PAIN Time Seen by Provider: 16:21 Source: patient (KELLY GARVIN APRN) Time Seen by Provider: 19:50 (ROMÁN GREEN MD) HPI - Abdominal Pain Initial Comments 51 YO F presents to ED with report of periumbilical abdominal pain, nausea, vomiting and diarrhea that started at 0200 today. Has had several emesis and diarrhea stools. Abdominal pain waxes and wanes in intensity. Pain is not exacerbated by movement. Denies fever, chills, dysuria or known sick contact. Patient concerned she may have an appendicitis. Patient has stable VS. Duration: 12-24 hrs Pain Scale: Now: 8/10, Worst: 9/10 Quality: aching, cramping Location: periumbilical Radiation: no radiation Modifying Factors: WORSE WITH: palpation Associated Symptoms: nausea/vomiting, DENIES: back pain, chest pain, diaphoresis, fatigue, fever/chills, headache, heartburn, rash, shortness of breath, swelling/mass in abdomen, syncope, weakness (KELLY GARVIN APRN) Allergies: Coded Allergies: No Known Allergies (Unverified , 07/05/16) Past History Past Medical History Metabolic: hypertension Cardiac: other (murmur) Respiratory: asthma GI: DENIES: ulcers Female: UTI, kidney stones Neurological: DENIES: seizures Musculoskeletal: osteoarthritis Psychological: depression (KELLY GARVIN APRN) Surgical History Reproductive/: hysterectomy Joint: other (ankle) (KELLY GARVIN APRN) Family History Family PMH: FOUND: [place], hypercholesterolemia, hypertension (KELLY GARVIN APRN) Vaccines Hx Influenza Vaccination: Yes (january of 2015) Hx Pneumococcal Vaccination: No Hx Tetanus, Diptheria, Pertuss: No (MORE 8 YEARS AGO) (KELLY GARVIN APRN) Social History Does patient use chewing tobac: No Sexuality: male partner (KELLY GARVIN APRN) Review of Systems Constitutional Constitutional: DENIES: chills, dizziness, fever, weakness (KELLY GARVIN APRN) Eyes General: DENIES: erythema, exudate Lids/Accessories: DENIES: erythema, swelling (KELLY GARVIN APRN) ENMT Ears: DENIES: pain Sinuses: DENIES: congestion, rhinorrhea Mouth/Throat: DENIES: sore throat (KELLY GARVIN APRN) Cardiovascular Cardiac: DENIES: chest pain, murmur Rhythm/Rate: DENIES: palpitations (GARVIN,KELLY A EVENT OPERATIONS MANAGER) Pulmonary Respiratory: DENIES: cough, dyspnea (GARVIN,KELLY A EVENT OPERATIONS MANAGER) GI Upper Abdomen: nausea, pain, vomiting Lower Abdomen: diarrhea, pain, DENIES: blood in stool (GARVIN,KELLY A EVENT OPERATIONS MANAGER) General: DENIES: dysuria, pain (GARVIN,KELLY A EVENT OPERATIONS MANAGER) Musculoskeletal General: DENIES: joint pain, pain, tenderness (GARVIN,KELLY A EVENT OPERATIONS MANAGER) Integumentary Skin: DENIES: color change, itching, rash (GARVIN,KELLY A EVENT OPERATIONS MANAGER) Neurological General: DENIES: ataxia, change in strength, numbness, paralysis/paresis, weakness (GARVIN,KELLY A EVENT OPERATIONS MANAGER) Psychiatric Psychiatric: DENIES: anxiety, depression, nervousness (GARVIN,KELLY A EVENT OPERATIONS MANAGER) Physical Exam General General Nourishment: well nourished, well developed, no acute distress, adult General Body Habitus: well groomed (GARVIN,KELLY A EVENT OPERATIONS MANAGER) Vitals and Pain Weight: Kilograms: 68.400 Height (feet): 5 Height (inches): 5.00 Triage Pain Scale: (GARVIN,KELLY A EVENT OPERATIONS MANAGER) Eyes (brief) Eyes Brief: found: EOMI (GARVIN,KELLY A EVENT OPERATIONS MANAGER) ENMT (brief) ENMT Brief: FOUND: mucosa moist, NOT FOUND: nasal exudate, nasal swelling ( GARVIN,KELLY A EVENT OPERATIONS MANAGER) Neck (brief) Neck: FOUND: trachea midline (GARVIN,KELLY A EVENT OPERATIONS MANAGER) Respiratory (brief) Respiratory: FOUND: clear all morfin, equal bilaterally, symmetrical (GARVIN, KELLY A EVENT OPERATIONS MANAGER) Cardiovascular (brief) Cardiac: FOUND: regular rate, regular rhythm (GARVIN,KELLY A EVENT OPERATIONS MANAGER) Abdomen Inspection: NOT FOUND: distention Palpation: FOUND: involuntary guarding, soft, tender (diffuse), voluntary guarding, NOT FOUND: McBurney's point tender, Rosving's sign, hepatomegaly, rebound, splenomegaly (GARVIN,KELLY A EVENT OPERATIONS MANAGER) Musculoskeletal (brief) Musculoskeletal Brief: NOT FOUND: deformity, loss of motion (GARVIN,KELLY A EVENT OPERATIONS MANAGER) Integumentary (brief) Integumentary Brief: FOUND: dry, pink, warm (GARVIN,KELLY A EVENT OPERATIONS MANAGER) Neurologic (brief) Neurological Brief: FOUND: motor-no gross deficits, sensory-no gross deficits ( GARVIN,KELLY A EVENT OPERATIONS MANAGER) Psychiatric (brief) Psychiatric Brief: FOUND: alert, oriented (KELLY GARVIN EVENT OPERATIONS MANAGER) Differential Diagnoses Considering: Appendicitis, Diverticulitis, Gastroenteritis Considering: Dehydration, Food Poisoning, Hypokalemia, Viral Syndrome (KELLY GARVIN APRN) Progress Results/Orders Medications Current ED Medications Hydromorphone HCl (Dilaudid) 1 mg O ONCE IV Last administered on 07/05/16 17: 01; Start 07/05/16 at 16:45; Stop 07/05/16 at 16:46; Status DC Prochlorperazine Edisylate (Compazine) 10 mg O ONCE IV Last administered on 16:58; Start 07/05/16 at 16:45; Stop 07/05/16 at 16:46; Status DC Iohexol 1 bottle 1 bottle STK-MED ONCE .ROUTE ; Start 07/05/16 at 17:34; Stop at 17:35; Status DC Sodium Chloride (NS) 100 ml @ As Directed STK-MED ONCE .ROUTE ; Start 07/05/16 at 17:34; Stop 07/05/16 at 17:35; Status DC Sodium Chloride 10 ml 10 ml STK-MED ONCE .ROUTE ; Start 07/05/16 at 17:34; Stop 07/05/16 at 17:35; Status DC Sodium Chloride (NS) 500 ml @ 0 mls/hr Q0M ONCE IV Last administered on 18:48; Start 07/05/16 at 18:45; Stop 07/05/16 at 18:46; Status DC Ketorolac Tromethamine (Toradol) 30 mg O ONCE IV Last administered on 19:55; Start 07/05/16 at 20:00; Stop 07/05/16 at 20:01; Status DC (ROMÁN GREEN MD) Progress Progress Patient reports improved pain with dilaudid and nausea improved with compazine. CBC 12.9 with 2% bands CMP and UA noncontributory Due to WBC, fernando-umbilical pain and patient concern for appendicitis I offered patient CT scan of abdomen/pelvis and explained risk/benefits. Patient would like CT scan. Patient continues to have improved pain and no nausea or vomiting. Patient able to keep fluids down with trial of fluids. Patient's symptoms and exam findings consistent with gastroenteritis. Incidental CT finding of spleen infarct. Patient had no localized TTP in LUQ. I discussed CT findings with patient who denies any trauma and conversation I had with Dr. Zaldivar. Patient verbalized understanding of treatment plan, follow up with PCP and return precautions. (KELLY GARVIN APRN) Consult/PCP Consult/PCP : Type of discussion: Phone Consult/PCP Discussion Details I discussed patient's HPI, past medical history, labs, CT of abdomen pelvis, vital signs and exam findings with Dr. Zaldivar. Dr. Zaldivar feels patient most likely has gastroenteritis. CT finding of splenic infarct is most likely not acute due history and an incidental finding. Patient should follow with PCP. (KELLY GARVIN APRN) CT CT : CT: Abd/Pelvis IV contrast Interpretation: Abnormal (Diminished splenic enhancement consistent with splenic infarct) (KELLY GARVIN APRN) KELLY GARVIN APRN Jul 05, 2016 16:31 ROMÁN GREEN MD Jul 11, 2016 05:43 Band Neutrophils % 2.0% Lymphocytes % (Manual) 6.0% Monocytes % (Manual) 5.0% Basophils % (Manual) 1.0% Absolute Neutrophils (Manual) 11.1T/MM3 Band Neutrophils # 0.3T/MM3 Lymphocytes # (Manual) 0.8T/MM3 Monocytes # (Manual) 0.6T/MM3 Basophils # (Manual) 0.1T/MM3 Red Cell Morphology Comment Normal Turbidity < 20 Sodium Level 140MEQ/L Potassium Level 3.6MEQ/L Chloride Level 101MEQ/L Carbon Dioxide Level 24MEQ/L Anion Gap 15MEQ/L Blood Urea Nitrogen 22.0MG/DL Creatinine 0.7MG/DL Glomerular Filtration Rate Calc 88 BUN/Creatinine Ratio 31RATIO Glucose Level 99MG/DL Calculated Osmolality 272MOSM/KG Calcium Level 9.0MG/DL Total Bilirubin 1.00MG/DL Icterus Index < 2 Aspartate Amino Transf (AST/SGOT) 37U/L Alanine Aminotransferase (ALT/SGPT) 36U/L Alkaline Phosphatase 82U/L Total Protein 7.3G/DL Albumin 4.0G/DL Globulin 3.3G/DL Albumin/Globulin Ratio 1.2RATIO Lipase 29U/L Chemistry Specimen Hemolysis 39 Medications Current ED Medications Hydromorphone HCl (Dilaudid) 1 mg O ONCE IV Last administered on 07/05/16 17: 01; Start 07/05/16 at 16:45; Stop 07/05/16 at 16:46; Status DC Prochlorperazine Edisylate (Compazine) 10 mg O ONCE IV Last administered on 16:58; Start 07/05/16 at 16:45; Stop 07/05/16 at 16:46; Status DC Iohexol 1 bottle 1 bottle STK-MED ONCE .ROUTE ; Start 07/05/16 at 17:34; Stop at 17:35; Status DC Sodium Chloride (NS) 100 ml @ As Directed STK-MED ONCE .ROUTE ; Start 07/05/16 at 17:34; Stop 07/05/16 at 17:35; Status DC Sodium Chloride 10 ml 10 ml STK-MED ONCE .ROUTE ; Start 07/05/16 at 17:34; Stop 07/05/16 at 17:35; Status DC Sodium Chloride (NS) 500 ml @ 0 mls/hr Q0M ONCE IV Last administered on 18:48; Start 07/05/16 at 18:45; Stop 07/05/16 at 18:46; Status DC Ketorolac Tromethamine (Toradol) 30 mg O ONCE IV Last administered on 19:55; Start 07/05/16 at 20:00; Stop 07/05/16 at 20:01; Status DC Progress Progress Patient reports improved pain with dilaudid and nausea improved with compazine. Consult/PCP Consult/PCP : Type of discussion: Phone Consult/PCP Discussion Details I discussed patient's HPI, past medical history, labs, CT of abdomen pelvis, vital signs and exam findings with Dr. Zaldivar. Dr. Zaldivar feels patient most likely has gastroenteritis. CT finding of splenic infarct is most likely not acute due history and an incidental finding. Patient should follow with PCP. CT CT : CT: Abd/Pelvis IV contrast Interpretation: Abnormal (Diminished splenic enhancement consistent with splenic infarct) KELLY GARVIN APRN Jul 05, 2016 16:31
[2016-07-05] MEDS ORDERED: HYDR200T PEG (16:34)
[2016-07-05] MEDS ORDERED: CYCL-375 PO (16:34)
--- OUTSIDE RECORDS SUMMARY | 2016-07-05 16:39 | XMS REPORT ---
Author Author [place], [facility] - Organization Unknown Address Unknown Phone Unavailable [...]
--- OUTSIDE RECORDS SUMMARY | 2016-07-05 16:41 | XMS REPORT | Continuity of Care Document ---
Author Author [facility] Organization [facility] Address Unknown Phone Unavailable Allergies Medications Problems [...] Status Pt. Type Provider Facility Loc./Unit Complaint [id number] 01/24/2013 18:46:00 2012 20:24:00 DIS Emergency Amadeo Pham MD [facility] on [facility] TERM
[2016-07-05] MEDS ORDERED: PROCHLORPERAZINE 10mg/2ml INJECTION IV ONE (16:45)
[2016-07-05] MEDS ORDERED: HYDROMORPHONE 2mg/ml INJECTION IV ONE (16:45)
[2016-07-05 17:01] LABS: HCT - HEMATOCRIT 43.2 % (36-46); HGB - HEMOGLOBIN 14.2 GM/DL (12-16); MEAN CORPUSCULAR HGB 32.1 UUG (26-34); MEAN CORPUSCULAR HGB CONC(MCHC 32.9 GM/DL (31-37); MEAN CORPUSCULAR VOLUME 97.7 UM3 (80-100); MEAN PLATELET VOLUME 10.3 UM3 (9.4-12.4); RED BLOOD COUNT 4.42 M/MM3 (4.00-5.20); WBC - WHITE BLOOD COUNT 12.9 T/MM3 (4.5-11.0)
[2016-07-05 17:01] LABS: BLOOD, URINE NEGATIVE (NEGATIVE); COLOR,URINE YELLOW (YELLOW); LEUKOCYTE ESTERASE ,URINE NEGATIVE (NEGATIVE); NITRITE,URINE NEGATIVE (NEGATIVE); UROBILINOGEN,URINE 0.2 EU/DL (NORMAL)
[2016-07-05 17:09] LABS: ALBUMIN/GLOBULIN RATIO 1.2 RATIO (1.1-2.2); ALKALINE PHOSPHATASE 82 U/L (38-126); ALT (SGPT) 36 U/L (9-52); ANION GAP 15 MEQ/L (5-15); AST (SGOT) 37 U/L (14-36); BUN/CREATININE RATIO 31 RATIO (6-26); CHLORIDE 101 MEQ/L (98-107); CO2 - CARBON DIOXIDE 24 MEQ/L (22-30); CREATININE 0.7 MG/DL (0.7-1.2); GLOMERULAR FILTRATION RATE 88; GLUCOSE 99 MG/DL (65-110); LIPASE 29 U/L (23-300); POTASSIUM 3.6 MEQ/L (3.6-5); SODIUM 140 MEQ/L (134-144); TOTAL PROTEIN 7.3 G/DL (6.3-8.2)
--- NOTE | 2016-07-05 17:15 | NUR ---
UPDATE PAIN IS BETTER. PATIENT PLACED ON OXYGEN
[2016-07-05 17:27] LABS: SQUAMOUS EPITHELIAL CELL,UR 0-5
[2016-07-05 17:28] LABS: BACTERIA,URINE NONE SEEN (NEGATIVE); RBC,URINE 0-1 /HPF (0-3); WBC,URINE NONE SEEN /HPF (0-5)
[2016-07-05] MEDS ORDERED: NORMAL SALINE 100 ML ONE (17:34)
[2016-07-05] MEDS ORDERED: IOHEXOL 300 MG/ML 100ml INJECTION ONE (17:34)
[2016-07-05] MEDS ORDERED: SALINE FLUSH 10ml SYRINGE ONE (17:34)
[2016-07-05 17:37] LABS: BAND NEUTROPHILS # 0.3 T/MM3; BASOPHILS # (MANUAL) 0.1 T/MM3 (0-0.2); LYMPHOCYTES # (MANUAL) 0.8 T/MM3 (1-4.8); MONOCYTES # (MANUAL) 0.6 T/MM3 (0-0.8); NEUTROPHILS #(MANUAL)-ABSOLUTE 11.1 T/MM3 (1.8-7.7); TOTAL CELLS COUNTED 100 %
--- NOTE | 2016-07-05 17:37 | NUR ---
CT TO CT VIA CART.
--- NOTE | 2016-07-05 17:50 | NUR ---
CT RETURNS FROM CT VIA CART
[2016-07-05] MEDS ORDERED: NORMAL SALINE 500 ML IV ONE (18:45)
--- NOTE | 2016-07-05 19:01 | NUR ---
UPDATE PATIENT IS DOING BETTER.
--- NOTE | 2016-07-05 19:42 | NUR ---
PROVIDER ELVI GARVIN IN ROOM
[2016-07-05] MEDS ORDERED: HYDR-4246 PO (19:59)
[2016-07-05] MEDS ORDERED: ONDA4TAB7 PO (19:59)
[2016-07-05] MEDS ORDERED: PROC-14 PO (19:59)
[2016-07-05] MEDS ORDERED: KETOROLAC 30mg/ml INJECTION IV ONE (20:00)
[2016-07-05 20:06] VITALS: BP 117/56; PULSE 94; RESP 16; TEMP 98.8; O2SAT 97
--- NOTE | 2016-07-05 20:06 | NUR ---
DEPART VERBAL AND WRITTEN DISCHARGE INSTRUCTIONS GIVEN AND UNDERSTOOD. CONDITION STABLE. RELEASED AMBULATORY WITH SPOUSE. SCRIPTS.
--- NOTE | 2016-07-06 08:15 | DI ---
Indication: ITS.REASON: diffuse abdominal and left flank pain PROCEDURE: CT ABD/PELVIS W/CONTRAST ONLY: Encounter: Initial Comparison: July 17, 2015 Technique: Axial CT images were performed through the abdomen and pelvis after the administration of intravenous contrast. Coronal and sagittal two-dimensional reformats. Automated Exposure Control and Iterative Reconstruction dose reducing techniques were utilized. Contrast: Omnipaque 300 89 mL Findings: The lung bases are clear. The liver appears normal. Gallbladder is normal. New abnormal appearance of the spleen with multifocal nonenhancing regions seen peripherally. The pancreas and adrenal glands are normal. The kidneys are normal. No abdominal or pelvic lymphadenopathy. Bladder is normal. Uterus is absent. No free fluid or bowel obstruction. The appendix is normal. Bone windows show mild degenerative change in the spine. Impression: Focal splenic abnormality could represent splenic infarct or less likely a splenic abscess. The splenic artery and vein appear grossly patent and the etiology is not clear. This is a definite change from the comparison. There is a preliminary report by [facility]. .
== END 2016-07-05 20:06 | disposition home or self-care (01) ==
LOC: ED 16:12
DX: K52.9 Noninfective gastroenteritis and colitis, unspecified (principal)
CPT/HCPCS: 74177; 80053; 81001; 83690; 85025; 96374; 96375; 99284; J0780; J1170; J1885; J7050; Q9967